=== PATIENT | male | born 1955 | race Caucasian/White ===

== ENCOUNTER 2018-02-16 15:33 | Inpatient (IN) | payer BC ==
[~2018-02-16 15:33] MED LIST: VANCOMYCIN HCL 1,000 MG, VIAL MATE ADAPTER 1 EACH in D5W 250 ML IV
[2018-02-16 17:10] LABS: HEMATOCRIT 40.9 % (42.0-52.0); MEAN CORPUSCULAR HEMOGLOBIN 27.2 pg (27.0-33.0); MEAN CORPUSCULAR HGB CONC 34.2 g/dl (32.0-36.5); MEAN CORPUSCULAR VOLUME 79.4 fl (80.0-96.0); PLATELET COUNT, AUTOMATED 272 10^3/uL (150-450); RED BLOOD COUNT 5.15 10^6/uL (4.30-6.10); RED CELL DISTRIBUTION WIDTH 12.2 % (11.5-14.5); WHITE BLOOD COUNT 17.6 10^3/uL (4.0-10.0)
[2018-02-16 17:16] LABS: KETONE, URINE AUTO RFX 2+ mg/dL (NEGATIVE); LEUKOCYTE ESTERASE UR AUTO RFX NEGATIVE (NEGATIVE); MUCUS, URINE RFX SMALL (NEGATIVE); NITRITE, URINE AUTO RFX NEGATIVE (NEGATIVE); RBC, URINE AUTO RFX 1 /HPF (0-3); SPECIFIC GRAVITY UR AUTO RFX 1.037 (1.002-1.035); SQUAM EPITHELIAL CELL UR AURFX 1 /HPF (0-6); WBC, URINE AUTO RFX 2 /HPF (0-3)
[2018-02-16 17:21] LABS: INR 1.09; PROTHROMBIN TIME 14.3 SECONDS (12.4-14.5)
[2018-02-16 17:29] LABS: LACTIC ACID SEPSIS PROTOCOL 1.6 MMOL/L (0.4-2.0)
[2018-02-16 17:30] LABS: ALBUMIN 3.1 GM/DL (3.2-5.2); ALBUMIN/GLOBULIN RATIO 0.54 (1.00-1.93); ALKALINE PHOSPHATASE 143 U/L (45-117); ALT/SGPT 21 U/L (12-78); ANION GAP 7 MEQ/L (8-16); AST/SGOT 24 U/L (7-37); BILIRUBIN,DIRECT 0.2 MG/DL (0.0-0.2); BILIRUBIN,TOTAL 0.8 MG/DL (0.2-1.0); BLOOD UREA NITROGEN 20 MG/DL (7-18); CALCIUM LEVEL 9.8 MG/DL (8.8-10.2); CARBON DIOXIDE LEVEL 30 MEQ/L (21-32); CHLORIDE LEVEL 94 MEQ/L (98-107); CREATININE FOR GFR 1.09 MG/DL (0.70-1.30); GLOMERULAR FILTRATION RATE > 60.0 (>49); GLUCOSE, FASTING 321 MG/DL (70-100); SODIUM LEVEL 131 MEQ/L (136-145); TOTAL PROTEIN 8.8 GM/DL (6.4-8.2)
[2018-02-16] MEDS: NS 1,000 ML IV (18:30)
[2018-02-16] MEDS: HumuLIN R (REGULAR) INSULIN (NovoLIN R) **100U/ML** PER UNIT IV (18:30)
[2018-02-16 19:58] LABS: BEDSIDE GLUCOSE 175 MG/DL (80-115)
[2018-02-16] MEDS: PIPERACILLIN/TAZOBACTAM SOD 4.5 GM in D5W MINI-BAG PLUS 50 ML IV (22:15)
[2018-02-16] MEDS ORDERED: GLUCAGON FOR INJ 1 MG VIAL (J1610) SC (23:15)
[2018-02-16] MEDS ORDERED: DEXTROSE 50% 50 ML SYRINGE IV (23:15)
[2018-02-16] MEDS ORDERED: GLUCOSE 4 GM CHEW TABLET PO (23:15)
[2018-02-16] MEDS ORDERED: ACETAMINOPHEN TAB 650MG DOSE (2X325MG) PO (23:15)
[2018-02-17 00:12] LABS: CHOLESTEROL LEVEL 121 MG/DL (<200); CHOLESTEROL RISK RATIO 3.558 (<5); HDL CHOLESTEROL 34 MG/DL (>40); LDL CHOLESTEROL 64.8 MG/DL (<100); NON-HDL-C 87 MG/DL; TRIGLYCERIDES LEVEL 111 MG/DL (<150)
[2018-02-17 00:14] LABS: ESTIMATED AVERAGE GLUCOSE 341 MG/DL (60-110); HEMOGLOBIN A1c 13.5 %
[2018-02-17 00:47] LABS: ERYTHROCYTE SEDIMENTATION RATE 59 mm/hr (0-20)
[2018-02-17] MEDS: VANCOMYCIN HCL 1,000 MG, VIAL MATE ADAPTER 1 EACH in D5W 250 ML IV ×3 (00:52→20:37)
[2018-02-17 00:55] LABS: BEDSIDE GLUCOSE 273 MG/DL (80-115)
[2018-02-17] MEDS: HumaLOG INSULIN (NovoLOG) PER UNIT SC ×5 (01:52→20:37)
[2018-02-17 06:29] LABS: HEMATOCRIT 32.9 % (42.0-52.0); MEAN CORPUSCULAR HEMOGLOBIN 28.1 pg (27.0-33.0); MEAN CORPUSCULAR VOLUME 80.4 fl (80.0-96.0); PLATELET COUNT, AUTOMATED 205 10^3/uL (150-450); RED BLOOD COUNT 4.09 10^6/uL (4.30-6.10); WHITE BLOOD COUNT 12.9 10^3/uL (4.0-10.0)
[2018-02-17 06:39] LABS: HEMOGLOBIN 11.5 g/dl (13.5-17.5)
[2018-02-17 06:44] LABS: ANION GAP 8 MEQ/L (8-16); BLOOD UREA NITROGEN 16 MG/DL (7-18); CALCIUM LEVEL 8.3 MG/DL (8.8-10.2); CARBON DIOXIDE LEVEL 28 MEQ/L (21-32); CHLORIDE LEVEL 99 MEQ/L (98-107); CREATININE FOR GFR 0.78 MG/DL (0.70-1.30); GLOMERULAR FILTRATION RATE > 60.0 (>49); GLUCOSE, FASTING 253 MG/DL (70-100); POTASSIUM SERUM 3.6 MEQ/L (3.5-5.1); SODIUM LEVEL 135 MEQ/L (136-145)
[2018-02-17 07:43] LABS: ERYTHROCYTE SEDIMENTATION RATE 85 mm/hr (0-20)
[2018-02-17] MEDS: ENOXAPARIN 40 MG/0.4 ML SYRINGE (J1650) SC (09:06)
[2018-02-17] MEDS: LISINOPRIL 10 MG TAB PO (09:06)
[2018-02-17] MEDS: INFLUENZA QUADRIVALENT PF VACCINE 0.5ML SYRINGE (90686) IM (09:07)
[2018-02-17] MEDS: PIPERACILLIN/TAZOBACTAM SOD 2.25 GM in D5W MINI-BAG PLUS 50 ML IV ×2 (10:59→22:52)
[2018-02-17 11:54] LABS: BEDSIDE GLUCOSE 349 MG/DL (80-115)
[2018-02-17 17:22] LABS: BEDSIDE GLUCOSE 294 MG/DL (80-115)
[2018-02-17] MEDS ORDERED: PROHANCE 279.3MG/ML 15ML VIAL (A9576) As Ordered (19:45)
[2018-02-17] MEDS: LEVEMIR (INSULIN DETEMIR) 1 UNITS/0.01ML SC (20:37)
[2018-02-17 20:53] LABS: BEDSIDE GLUCOSE 325 MG/DL (80-115)
[2018-02-18 07:09] LABS: HEMATOCRIT 33.1 % (42.0-52.0); HEMOGLOBIN 11.4 g/dl (13.5-17.5); MEAN CORPUSCULAR HEMOGLOBIN 27.2 pg (27.0-33.0); MEAN CORPUSCULAR HGB CONC 34.4 g/dl (32.0-36.5); PLATELET COUNT, AUTOMATED 251 10^3/uL (150-450); RED BLOOD COUNT 4.19 10^6/uL (4.30-6.10); RED CELL DISTRIBUTION WIDTH 11.9 % (11.5-14.5); WHITE BLOOD COUNT 9.5 10^3/uL (4.0-10.0)
[2018-02-18 07:29] LABS: ANION GAP 7 MEQ/L (8-16); BLOOD UREA NITROGEN 16 MG/DL (7-18); CALCIUM LEVEL 8.3 MG/DL (8.8-10.2); CARBON DIOXIDE LEVEL 30 MEQ/L (21-32); CHLORIDE LEVEL 100 MEQ/L (98-107); CREATININE FOR GFR 0.86 MG/DL (0.70-1.30); GLOMERULAR FILTRATION RATE > 60.0 (>49); GLUCOSE, FASTING 299 MG/DL (70-100); POTASSIUM SERUM 3.6 MEQ/L (3.5-5.1); SODIUM LEVEL 137 MEQ/L (136-145)
[2018-02-18] MEDS: HumaLOG INSULIN (NovoLOG) PER UNIT SC ×4 (07:54→21:01)
[2018-02-18] MEDS: LISINOPRIL 10 MG TAB PO (07:54)
[2018-02-18] MEDS: ENOXAPARIN 40 MG/0.4 ML SYRINGE (J1650) SC (07:55)
[2018-02-18 07:57] LABS: ERYTHROCYTE SEDIMENTATION RATE 94 mm/hr (0-20)
[2018-02-18 08:10] LABS: VANCOMYCIN LEVEL TROUGH 5.6 UG/ML (10.0-20.0)
[2018-02-18] MEDS: VANCOMYCIN HCL 1,000 MG, VIAL MATE ADAPTER 1 EACH in D5W 250 ML IV ×3 (08:54→21:02)
[2018-02-18] MEDS: PIPERACILLIN/TAZOBACTAM SOD 2.25 GM in D5W MINI-BAG PLUS 50 ML IV ×2 (11:33→22:43)
[2018-02-18 12:03] LABS: BEDSIDE GLUCOSE 344 MG/DL (80-115)
[2018-02-18 17:22] LABS: BEDSIDE GLUCOSE 276 MG/DL (80-115)
[2018-02-18 20:01] LABS: BEDSIDE GLUCOSE 326 MG/DL (80-115)
[2018-02-18] MEDS: LEVEMIR (INSULIN DETEMIR) 1 UNITS/0.01ML SC (21:02)
[2018-02-19 07:41] LABS: HEMATOCRIT 35.1 % (42.0-52.0); HEMOGLOBIN 11.9 g/dl (13.5-17.5); MEAN CORPUSCULAR HEMOGLOBIN 27.3 pg (27.0-33.0); MEAN CORPUSCULAR HGB CONC 33.9 g/dl (32.0-36.5); MEAN CORPUSCULAR VOLUME 80.5 fl (80.0-96.0); PLATELET COUNT, AUTOMATED 269 10^3/uL (150-450); RED BLOOD COUNT 4.36 10^6/uL (4.30-6.10); WHITE BLOOD COUNT 8.1 10^3/uL (4.0-10.0)
[2018-02-19 08:01] LABS: ANION GAP 7 MEQ/L (8-16); BLOOD UREA NITROGEN 13 MG/DL (7-18); C REACTIVE PROTEIN QUANTITATIV 9.29 MG/DL (0.00-0.30); CALCIUM LEVEL 8.3 MG/DL (8.8-10.2); CARBON DIOXIDE LEVEL 31 MEQ/L (21-32); CHLORIDE LEVEL 100 MEQ/L (98-107); CREATININE FOR GFR 0.78 MG/DL (0.70-1.30); GLOMERULAR FILTRATION RATE > 60.0 (>49); GLUCOSE, FASTING 228 MG/DL (70-100); POTASSIUM SERUM 3.3 MEQ/L (3.5-5.1); SODIUM LEVEL 138 MEQ/L (136-145)
[2018-02-19 08:22] LABS: ERYTHROCYTE SEDIMENTATION RATE 89 mm/hr (0-20)
[2018-02-19] MEDS: VANCOMYCIN HCL 1,000 MG, VIAL MATE ADAPTER 1 EACH in D5W 250 ML IV ×2 (08:30→20:55)
[2018-02-19] MEDS: HumaLOG INSULIN (NovoLOG) PER UNIT SC ×4 (08:31→20:45)
[2018-02-19] MEDS: LISINOPRIL 10 MG TAB PO (08:33)
[2018-02-19] MEDS: ENOXAPARIN 40 MG/0.4 ML SYRINGE (J1650) SC (08:33)
[2018-02-19] MEDS: PIPERACILLIN/TAZOBACTAM SOD 2.25 GM in D5W MINI-BAG PLUS 50 ML IV ×2 (10:21→22:39)
[2018-02-19 11:44] LABS: BEDSIDE GLUCOSE 269 MG/DL (80-115)
[2018-02-19] MEDS: BUPIVACAINE HCL 0.5% 10 ML VIAL As Ordered (15:43)
[2018-02-19] MEDS ORDERED: PROPOFOL 200 MG/20 ML VIAL As Ordered (16:18)
[2018-02-19] MEDS ORDERED: fentaNYL 100 MCG/2 ML INJECTION (J3010) As Ordered (16:19)
[2018-02-19] MEDS ORDERED: MIDAZOLAM INJ 2 MG/2 ML VIAL (J2250) As Ordered (16:20)
[2018-02-19] MEDS: LIDOCAINE 2% MDV 20 ML VIAL As Ordered (16:43)
[2018-02-19] MEDS: VANCOMYCIN 1000 MG/20 ML VIAL (J3370) As Ordered (17:06)
[2018-02-19 18:15] LABS: BEDSIDE GLUCOSE 191 MG/DL (80-115)
[2018-02-19] MEDS: LR 1,000 ML IV (18:15)
[2018-02-19] MEDS ORDERED: NORCO, ANEXSIA 5/325MG TABLET (HYDROcodone/ACETAMINOPHEN) PO (18:15)
[2018-02-19] MEDS ORDERED: ONDANSETRON 4MG/2ML VIAL (J2405) IV (18:15)
[2018-02-19 20:18] LABS: BEDSIDE GLUCOSE 246 MG/DL (80-115)
[2018-02-19] MEDS: LEVEMIR (INSULIN DETEMIR) 1 UNITS/0.01ML SC (20:55)
[2018-02-20 06:37] LABS: HEMATOCRIT 34.4 % (42.0-52.0); HEMOGLOBIN 11.6 g/dl (13.5-17.5); MEAN CORPUSCULAR HEMOGLOBIN 27.4 pg (27.0-33.0); MEAN CORPUSCULAR HGB CONC 33.7 g/dl (32.0-36.5); MEAN CORPUSCULAR VOLUME 81.1 fl (80.0-96.0); PLATELET COUNT, AUTOMATED 300 10^3/uL (150-450); RED BLOOD COUNT 4.24 10^6/uL (4.30-6.10); WHITE BLOOD COUNT 8.8 10^3/uL (4.0-10.0)
[2018-02-20 06:53] LABS: ANION GAP 5 MEQ/L (8-16); BLOOD UREA NITROGEN 13 MG/DL (7-18); CALCIUM LEVEL 8.6 MG/DL (8.8-10.2); CARBON DIOXIDE LEVEL 34 MEQ/L (21-32); CHLORIDE LEVEL 98 MEQ/L (98-107); CREATININE FOR GFR 0.89 MG/DL (0.70-1.30); GLOMERULAR FILTRATION RATE > 60.0 (>49); GLUCOSE, FASTING 233 MG/DL (70-100); POTASSIUM SERUM 4.1 MEQ/L (3.5-5.1); SODIUM LEVEL 137 MEQ/L (136-145)
[2018-02-20 07:06] LABS: ERYTHROCYTE SEDIMENTATION RATE 85 mm/hr (0-20)
[2018-02-20] MEDS: VANCOMYCIN HCL 1,000 MG, VIAL MATE ADAPTER 1 EACH in D5W 250 ML IV (09:05)
[2018-02-20] MEDS: ENOXAPARIN 40 MG/0.4 ML SYRINGE (J1650) SC (09:06)
[2018-02-20] MEDS: HumaLOG INSULIN (NovoLOG) PER UNIT SC ×4 (09:06→21:12)
[2018-02-20] MEDS: LISINOPRIL 10 MG TAB PO (09:15)
[2018-02-20] MEDS: PIPERACILLIN/TAZOBACTAM SOD 2.25 GM in D5W MINI-BAG PLUS 50 ML IV (10:21)
[2018-02-20] MEDS ORDERED: CEFAZOLIN SOD 2 GM in APPROPRIATE DILUENT 1 EA IV (12:00)
[2018-02-20 13:00] LABS: BEDSIDE GLUCOSE 261 MG/DL (80-115)
[2018-02-20 13:22] LABS: HEPATITIS C VIRUS ABY INDEX < 0.0 INDEX (<0.8)
[2018-02-20 17:40] LABS: BEDSIDE GLUCOSE 357 MG/DL (80-115)
[2018-02-20] MEDS: LEVEMIR (INSULIN DETEMIR) 1 UNITS/0.01ML SC (21:08)
[2018-02-20 21:22] LABS: BEDSIDE GLUCOSE 390 MG/DL (80-115)
[2018-02-21 06:01] LABS: HEMATOCRIT 34.6 % (42.0-52.0); HEMOGLOBIN 11.7 g/dl (13.5-17.5); MEAN CORPUSCULAR HEMOGLOBIN 27.1 pg (27.0-33.0); MEAN CORPUSCULAR HGB CONC 33.8 g/dl (32.0-36.5); MEAN CORPUSCULAR VOLUME 80.3 fl (80.0-96.0); PLATELET COUNT, AUTOMATED 327 10^3/uL (150-450); RED BLOOD COUNT 4.31 10^6/uL (4.30-6.10); RED CELL DISTRIBUTION WIDTH 11.9 % (11.5-14.5); WHITE BLOOD COUNT 7.7 10^3/uL (4.0-10.0)
[2018-02-21 06:28] LABS: ANION GAP 5 MEQ/L (8-16); BLOOD UREA NITROGEN 14 MG/DL (7-18); C REACTIVE PROTEIN QUANTITATIV 6.01 MG/DL (0.00-0.30); CALCIUM LEVEL 8.6 MG/DL (8.8-10.2); CARBON DIOXIDE LEVEL 33 MEQ/L (21-32); CHLORIDE LEVEL 99 MEQ/L (98-107); CREATININE FOR GFR 0.91 MG/DL (0.70-1.30); GLOMERULAR FILTRATION RATE > 60.0 (>49); GLUCOSE, FASTING 186 MG/DL (70-100); SODIUM LEVEL 137 MEQ/L (136-145)
[2018-02-21 06:29] LABS: ERYTHROCYTE SEDIMENTATION RATE 75 mm/hr (0-20)
[2018-02-21] MEDS: LISINOPRIL 10 MG TAB PO (08:37)
[2018-02-21] MEDS: ENOXAPARIN 40 MG/0.4 ML SYRINGE (J1650) SC (08:37)
[2018-02-21] MEDS: HumaLOG INSULIN (NovoLOG) PER UNIT SC ×4 (08:38→21:04)
[2018-02-21 12:12] LABS: BEDSIDE GLUCOSE 284 MG/DL (80-115)
[2018-02-21 21:01] LABS: BEDSIDE GLUCOSE 271 MG/DL (80-115)
[2018-02-21] MEDS: LEVEMIR (INSULIN DETEMIR) 1 UNITS/0.01ML SC (21:03)
[2018-02-22 06:04] LABS: HEMATOCRIT 35.5 % (42.0-52.0); HEMOGLOBIN 11.8 g/dl (13.5-17.5); MEAN CORPUSCULAR HEMOGLOBIN 27.3 pg (27.0-33.0); MEAN CORPUSCULAR HGB CONC 33.2 g/dl (32.0-36.5); MEAN CORPUSCULAR VOLUME 82.2 fl (80.0-96.0); PLATELET COUNT, AUTOMATED 316 10^3/uL (150-450); RED BLOOD COUNT 4.32 10^6/uL (4.30-6.10); WHITE BLOOD COUNT 7.4 10^3/uL (4.0-10.0)
[2018-02-22 06:24] LABS: ERYTHROCYTE SEDIMENTATION RATE 82 mm/hr (0-20)
[2018-02-22 06:25] LABS: ANION GAP 6 MEQ/L (8-16); BLOOD UREA NITROGEN 16 MG/DL (7-18); C REACTIVE PROTEIN QUANTITATIV 3.11 MG/DL (0.00-0.30); CALCIUM LEVEL 8.6 MG/DL (8.8-10.2); CARBON DIOXIDE LEVEL 31 MEQ/L (21-32); CHLORIDE LEVEL 102 MEQ/L (98-107); CREATININE FOR GFR 0.98 MG/DL (0.70-1.30); GLOMERULAR FILTRATION RATE > 60.0 (>49); GLUCOSE, FASTING 169 MG/DL (70-100); MAGNESIUM LEVEL 2.4 MG/DL (1.8-2.4); SODIUM LEVEL 139 MEQ/L (136-145)
[2018-02-22] MEDS: ENOXAPARIN 40 MG/0.4 ML SYRINGE (J1650) SC (09:07)
[2018-02-22] MEDS: LISINOPRIL 10 MG TAB PO (09:07)
[2018-02-22] MEDS: HumaLOG INSULIN (NovoLOG) PER UNIT SC ×4 (09:08→20:22)
[2018-02-22 11:56] LABS: BEDSIDE GLUCOSE 229 MG/DL (80-115)
[2018-02-22 16:36] LABS: BEDSIDE GLUCOSE 193 MG/DL (80-115)
[2018-02-22 20:15] LABS: BEDSIDE GLUCOSE 269 MG/DL (80-115)
[2018-02-22] MEDS: LEVEMIR (INSULIN DETEMIR) 1 UNITS/0.01ML SC (20:21)
[2018-02-23 05:58] LABS: HEMOGLOBIN 11.8 g/dl (13.5-17.5); MEAN CORPUSCULAR HEMOGLOBIN 27.2 pg (27.0-33.0); MEAN CORPUSCULAR HGB CONC 32.8 g/dl (32.0-36.5); MEAN CORPUSCULAR VOLUME 82.9 fl (80.0-96.0); PLATELET COUNT, AUTOMATED 322 10^3/uL (150-450); RED BLOOD COUNT 4.34 10^6/uL (4.30-6.10); WHITE BLOOD COUNT 6.9 10^3/uL (4.0-10.0)
[2018-02-23 06:18] LABS: ANION GAP 6 MEQ/L (8-16); BLOOD UREA NITROGEN 15 MG/DL (7-18); C REACTIVE PROTEIN QUANTITATIV 2.12 MG/DL (0.00-0.30); CALCIUM LEVEL 8.6 MG/DL (8.8-10.2); CARBON DIOXIDE LEVEL 32 MEQ/L (21-32); CHLORIDE LEVEL 102 MEQ/L (98-107); GLOMERULAR FILTRATION RATE > 60.0 (>49); GLUCOSE, FASTING 83 MG/DL (70-100); MAGNESIUM LEVEL 2.3 MG/DL (1.8-2.4); POTASSIUM SERUM 3.9 MEQ/L (3.5-5.1); SODIUM LEVEL 140 MEQ/L (136-145)
[2018-02-23] MEDS: HumaLOG INSULIN (NovoLOG) PER UNIT SC ×4 (07:30→20:26)
[2018-02-23 08:03] LABS: ERYTHROCYTE SEDIMENTATION RATE 82 mm/hr (0-20)
[2018-02-23] MEDS: LISINOPRIL 10 MG TAB PO (08:33)
[2018-02-23] MEDS: ENOXAPARIN 40 MG/0.4 ML SYRINGE (J1650) SC (08:34)
[2018-02-23 12:03] LABS: BEDSIDE GLUCOSE 239 MG/DL (80-115)
[2018-02-23 17:08] LABS: BEDSIDE GLUCOSE 201 MG/DL (80-115)
[2018-02-23 20:27] LABS: BEDSIDE GLUCOSE 295 MG/DL (80-115)
[2018-02-23] MEDS: LEVEMIR (INSULIN DETEMIR) 1 UNITS/0.01ML SC (22:14)
[2018-02-24 06:25] LABS: BASO % 0.4 % (0.0-1.0); EOS # 0.2 10^3/uL (0.0-0.50); EOS % 2.3 % (0.0-3.0); HEMATOCRIT 36.5 % (42.0-52.0); HEMOGLOBIN 12.1 g/dl (13.5-17.5); IMMATURE GRANULOCYTE % 0.6 % (0-3.0); LYMPH # 1.7 10^3/uL (1.5-4.5); MEAN CORPUSCULAR HGB CONC 33.2 g/dl (32.0-36.5); MEAN CORPUSCULAR VOLUME 81.5 fl (80.0-96.0); MONO # 0.7 10^3/uL (0.0-0.8); MONO % 10.4 % (0.0-5.0); NEUTROPHILS # 4.4 10^3/uL (1.8-7.7); NEUTROPHILS % 62.3 % (36.0-66.0); PLATELET COUNT, AUTOMATED 369 10^3/uL (150-450); RED BLOOD COUNT 4.48 10^6/uL (4.30-6.10); RED CELL DISTRIBUTION WIDTH 12.1 % (11.5-14.5)
[2018-02-24 06:46] LABS: ANION GAP 3 MEQ/L (8-16); BLOOD UREA NITROGEN 14 MG/DL (7-18); C REACTIVE PROTEIN QUANTITATIV 1.67 MG/DL (0.00-0.30); CALCIUM LEVEL 8.9 MG/DL (8.8-10.2); CARBON DIOXIDE LEVEL 32 MEQ/L (21-32); CHLORIDE LEVEL 102 MEQ/L (98-107); CREATININE FOR GFR 0.93 MG/DL (0.70-1.30); GLOMERULAR FILTRATION RATE > 60.0 (>49); GLUCOSE, FASTING 98 MG/DL (70-100); MAGNESIUM LEVEL 2.7 MG/DL (1.8-2.4); POTASSIUM SERUM 4.3 MEQ/L (3.5-5.1); SODIUM LEVEL 137 MEQ/L (136-145)
[2018-02-24] MEDS: HumaLOG INSULIN (NovoLOG) PER UNIT SC ×5 (07:03→21:00)
[2018-02-24] MEDS: ENOXAPARIN 40 MG/0.4 ML SYRINGE (J1650) SC (07:37)
[2018-02-24] MEDS: LISINOPRIL 10 MG TAB PO (07:37)
[2018-02-24 11:43] LABS: BEDSIDE GLUCOSE 114 MG/DL (80-115)
[2018-02-24 17:15] LABS: BEDSIDE GLUCOSE 215 MG/DL (80-115)
[2018-02-24] MEDS: LEVEMIR (INSULIN DETEMIR) 1 UNITS/0.01ML SC (21:00)
[2018-02-24 21:13] LABS: BEDSIDE GLUCOSE 278 MG/DL (80-115)
[2018-02-25 07:30] LABS: BASO % 0.5 % (0.0-1.0); EOS # 0.1 10^3/uL (0.0-0.50); EOS % 2.1 % (0.0-3.0); HEMATOCRIT 36.4 % (42.0-52.0); IMMATURE GRANULOCYTE % 0.6 % (0-3.0); LYMPH # 1.5 10^3/uL (1.5-4.5); LYMPH % 24.1 % (24.0-44.0); MEAN CORPUSCULAR HEMOGLOBIN 27.2 pg (27.0-33.0); MEAN CORPUSCULAR VOLUME 82.5 fl (80.0-96.0); MONO # 0.6 10^3/uL (0.0-0.8); MONO % 9.4 % (0.0-5.0); NEUTROPHILS % 63.3 % (36.0-66.0); PLATELET COUNT, AUTOMATED 381 10^3/uL (150-450); RED BLOOD COUNT 4.41 10^6/uL (4.30-6.10); RED CELL DISTRIBUTION WIDTH 12.1 % (11.5-14.5); WHITE BLOOD COUNT 6.3 10^3/uL (4.0-10.0)
[2018-02-25] MEDS: HumaLOG INSULIN (NovoLOG) PER UNIT SC ×4 (07:30→21:00)
[2018-02-25 07:48] LABS: ANION GAP 4 MEQ/L (8-16); BLOOD UREA NITROGEN 17 MG/DL (7-18); CALCIUM LEVEL 8.7 MG/DL (8.8-10.2); CARBON DIOXIDE LEVEL 33 MEQ/L (21-32); CHLORIDE LEVEL 103 MEQ/L (98-107); CREATININE FOR GFR 0.92 MG/DL (0.70-1.30); GLOMERULAR FILTRATION RATE > 60.0 (>49); GLUCOSE, FASTING 73 MG/DL (70-100); MAGNESIUM LEVEL 2.3 MG/DL (1.8-2.4); POTASSIUM SERUM 4.3 MEQ/L (3.5-5.1); SODIUM LEVEL 140 MEQ/L (136-145)
[2018-02-25] MEDS: ENOXAPARIN 40 MG/0.4 ML SYRINGE (J1650) SC (09:09)
[2018-02-25] MEDS: LISINOPRIL 10 MG TAB PO (09:09)
[2018-02-25 09:36] LABS: BEDSIDE GLUCOSE 305 MG/DL (80-115)
[2018-02-25] MEDS: D5W/0.45% SODIUM CHLORIDE 1,000 ML IV (09:59)
[2018-02-25 11:59] LABS: BEDSIDE GLUCOSE 119 MG/DL (80-115)
[2018-02-25 17:22] LABS: BEDSIDE GLUCOSE 168 MG/DL (80-115)
[2018-02-25] MEDS: LEVEMIR (INSULIN DETEMIR) 1 UNITS/0.01ML SC (21:07)
[2018-02-26 06:24] LABS: BASO % 0.7 % (0.0-1.0); EOS # 0.1 10^3/uL (0.0-0.50); EOS % 1.6 % (0.0-3.0); HEMATOCRIT 37.7 % (42.0-52.0); HEMOGLOBIN 12.4 g/dl (13.5-17.5); IMMATURE GRANULOCYTE % 0.4 % (0-3.0); LYMPH # 1.6 10^3/uL (1.5-4.5); LYMPH % 27.9 % (24.0-44.0); MEAN CORPUSCULAR HGB CONC 32.9 g/dl (32.0-36.5); MONO # 0.6 10^3/uL (0.0-0.8); MONO % 11.2 % (0.0-5.0); NEUTROPHILS # 3.3 10^3/uL (1.8-7.7); NEUTROPHILS % 58.2 % (36.0-66.0); PLATELET COUNT, AUTOMATED 365 10^3/uL (150-450); WHITE BLOOD COUNT 5.7 10^3/uL (4.0-10.0)
[2018-02-26 06:56] LABS: ANION GAP 2 MEQ/L (8-16); BLOOD UREA NITROGEN 19 MG/DL (7-18); C REACTIVE PROTEIN QUANTITATIV 1.02 MG/DL (0.00-0.30); CALCIUM LEVEL 8.9 MG/DL (8.8-10.2); CARBON DIOXIDE LEVEL 33 MEQ/L (21-32); CHLORIDE LEVEL 103 MEQ/L (98-107); CREATININE FOR GFR 1.07 MG/DL (0.70-1.30); GLOMERULAR FILTRATION RATE > 60.0 (>49); GLUCOSE, FASTING 155 MG/DL (70-100); MAGNESIUM LEVEL 2.5 MG/DL (1.8-2.4); POTASSIUM SERUM 4.6 MEQ/L (3.5-5.1); SODIUM LEVEL 138 MEQ/L (136-145)
[2018-02-26] MEDS: HumaLOG INSULIN (NovoLOG) PER UNIT SC ×4 (07:30→21:00)
[2018-02-26] MEDS: LISINOPRIL 10 MG TAB PO (09:34)
[2018-02-26] MEDS: ENOXAPARIN 40 MG/0.4 ML SYRINGE (J1650) SC (09:35)
[2018-02-26 11:13] LABS: BEDSIDE GLUCOSE 223 MG/DL (80-115)
[2018-02-26 11:54] LABS: BEDSIDE GLUCOSE 115 MG/DL (80-115)
[2018-02-26] MEDS ORDERED: MIDAZOLAM INJ 2 MG/2 ML VIAL (J2250) As Ordered (14:53)
[2018-02-26] MEDS ORDERED: fentaNYL 100 MCG/2 ML INJECTION (J3010) As Ordered (14:53)
[2018-02-26] MEDS ORDERED: HEPARIN 1,000 UNITS/ML 10ML VIAL (FOR RADIOLOGY& DIALYSIS ONLY) As Ordered (14:54)
[2018-02-26] MEDS ORDERED: ISOVUE-300 61% 50ML VIAL (Q9967) As Ordered (14:54)
[2018-02-26 17:20] LABS: BEDSIDE GLUCOSE 87 MG/DL (80-115)
[2018-02-26 20:53] LABS: BEDSIDE GLUCOSE 224 MG/DL (80-115)
[2018-02-26] MEDS: LEVEMIR (INSULIN DETEMIR) 1 UNITS/0.01ML SC (21:04)
[2018-02-27 06:39] LABS: BASO % 0.5 % (0.0-1.0); EOS # 0.1 10^3/uL (0.0-0.50); EOS % 1.3 % (0.0-3.0); HEMATOCRIT 36.2 % (42.0-52.0); HEMOGLOBIN 12.1 g/dl (13.5-17.5); IMMATURE GRANULOCYTE % 0.2 % (0-3.0); LYMPH # 1.6 10^3/uL (1.5-4.5); MEAN CORPUSCULAR HEMOGLOBIN 27.6 pg (27.0-33.0); MEAN CORPUSCULAR HGB CONC 33.4 g/dl (32.0-36.5); MEAN CORPUSCULAR VOLUME 82.6 fl (80.0-96.0); MONO # 0.7 10^3/uL (0.0-0.8); MONO % 10.4 % (0.0-5.0); NEUTROPHILS # 3.9 10^3/uL (1.8-7.7); NEUTROPHILS % 62.6 % (36.0-66.0); PLATELET COUNT, AUTOMATED 380 10^3/uL (150-450); RED BLOOD COUNT 4.38 10^6/uL (4.30-6.10); WHITE BLOOD COUNT 6.2 10^3/uL (4.0-10.0)
[2018-02-27 06:58] LABS: ANION GAP 5 MEQ/L (8-16); BLOOD UREA NITROGEN 15 MG/DL (7-18); C REACTIVE PROTEIN QUANTITATIV 0.69 MG/DL (0.00-0.30); CALCIUM LEVEL 8.7 MG/DL (8.8-10.2); CARBON DIOXIDE LEVEL 31 MEQ/L (21-32); CHLORIDE LEVEL 104 MEQ/L (98-107); GLOMERULAR FILTRATION RATE > 60.0 (>49); GLUCOSE, FASTING 61 MG/DL (70-100); MAGNESIUM LEVEL 2.5 MG/DL (1.8-2.4); POTASSIUM SERUM 4.1 MEQ/L (3.5-5.1); SODIUM LEVEL 140 MEQ/L (136-145)
[2018-02-27] MEDS: HumaLOG INSULIN (NovoLOG) PER UNIT SC ×4 (07:23→21:00)
[2018-02-27] MEDS: LISINOPRIL 10 MG TAB PO (08:02)
[2018-02-27] MEDS: ENOXAPARIN 40 MG/0.4 ML SYRINGE (J1650) SC (08:03)
[2018-02-27 11:45] LABS: BEDSIDE GLUCOSE 250 MG/DL (80-115)
[2018-02-27 16:45] LABS: BEDSIDE GLUCOSE 215 MG/DL (80-115)
[2018-02-27 21:11] LABS: BEDSIDE GLUCOSE 219 MG/DL (80-115)
[2018-02-27] MEDS: LEVEMIR (INSULIN DETEMIR) 1 UNITS/0.01ML SC (21:36)
[2018-02-28 06:01] LABS: BASO % 0.5 % (0.0-1.0); EOS # 0.1 10^3/uL (0.0-0.50); EOS % 1.8 % (0.0-3.0); HEMATOCRIT 35.8 % (42.0-52.0); HEMOGLOBIN 11.9 g/dl (13.5-17.5); IMMATURE GRANULOCYTE % 0.5 % (0-3.0); LYMPH # 1.3 10^3/uL (1.5-4.5); LYMPH % 20.9 % (24.0-44.0); MEAN CORPUSCULAR HEMOGLOBIN 27.5 pg (27.0-33.0); MEAN CORPUSCULAR HGB CONC 33.2 g/dl (32.0-36.5); MEAN CORPUSCULAR VOLUME 82.9 fl (80.0-96.0); MONO # 0.7 10^3/uL (0.0-0.8); MONO % 10.8 % (0.0-5.0); NEUTROPHILS # 4.1 10^3/uL (1.8-7.7); NEUTROPHILS % 65.5 % (36.0-66.0); PLATELET COUNT, AUTOMATED 336 10^3/uL (150-450); RED BLOOD COUNT 4.32 10^6/uL (4.30-6.10); WHITE BLOOD COUNT 6.3 10^3/uL (4.0-10.0)
[2018-02-28 06:29] LABS: ANION GAP 5 MEQ/L (8-16); BLOOD UREA NITROGEN 16 MG/DL (7-18); C REACTIVE PROTEIN QUANTITATIV 0.74 MG/DL (0.00-0.30); CALCIUM LEVEL 8.8 MG/DL (8.8-10.2); CARBON DIOXIDE LEVEL 31 MEQ/L (21-32); CHLORIDE LEVEL 103 MEQ/L (98-107); CREATININE FOR GFR 0.84 MG/DL (0.70-1.30); GLOMERULAR FILTRATION RATE > 60.0 (>49); GLUCOSE, FASTING 141 MG/DL (70-100); MAGNESIUM LEVEL 2.5 MG/DL (1.8-2.4); POTASSIUM SERUM 4.7 MEQ/L (3.5-5.1); SODIUM LEVEL 139 MEQ/L (136-145)
[2018-02-28] MEDS: ENOXAPARIN 40 MG/0.4 ML SYRINGE (J1650) SC (07:36)
[2018-02-28] MEDS: LISINOPRIL 10 MG TAB PO (07:36)
[2018-02-28] MEDS: LEVEMIR (INSULIN DETEMIR) 1 UNITS/0.01ML SC ×2 (07:36→21:35)
[2018-02-28] MEDS: HumaLOG INSULIN (NovoLOG) PER UNIT SC ×4 (07:37→21:34)
[2018-02-28 11:58] LABS: BEDSIDE GLUCOSE 171 MG/DL (80-115)
[2018-02-28 16:42] LABS: BEDSIDE GLUCOSE 89 MG/DL (80-115)
[2018-03-01 05:54] LABS: BASO % 0.7 % (0.0-1.0); EOS # 0.1 10^3/uL (0.0-0.50); EOS % 2.1 % (0.0-3.0); HEMATOCRIT 36.1 % (42.0-52.0); HEMOGLOBIN 11.9 g/dl (13.5-17.5); IMMATURE GRANULOCYTE % 0.3 % (0-3.0); LYMPH # 1.3 10^3/uL (1.5-4.5); MEAN CORPUSCULAR HEMOGLOBIN 27.4 pg (27.0-33.0); MEAN CORPUSCULAR VOLUME 83.2 fl (80.0-96.0); MONO # 0.6 10^3/uL (0.0-0.8); NEUTROPHILS # 3.9 10^3/uL (1.8-7.7); NEUTROPHILS % 64.9 % (36.0-66.0); PLATELET COUNT, AUTOMATED 330 10^3/uL (150-450); RED BLOOD COUNT 4.34 10^6/uL (4.30-6.10); RED CELL DISTRIBUTION WIDTH 12.2 % (11.5-14.5); WHITE BLOOD COUNT 6.1 10^3/uL (4.0-10.0)
[2018-03-01 06:17] LABS: ANION GAP 3 MEQ/L (8-16); BLOOD UREA NITROGEN 16 MG/DL (7-18); C REACTIVE PROTEIN QUANTITATIV 0.91 MG/DL (0.00-0.30); CALCIUM LEVEL 8.4 MG/DL (8.8-10.2); CARBON DIOXIDE LEVEL 32 MEQ/L (21-32); CHLORIDE LEVEL 104 MEQ/L (98-107); CREATININE FOR GFR 0.87 MG/DL (0.70-1.30); GLOMERULAR FILTRATION RATE > 60.0 (>49); GLUCOSE, FASTING 91 MG/DL (70-100); POTASSIUM SERUM 4.4 MEQ/L (3.5-5.1); SODIUM LEVEL 139 MEQ/L (136-145)
[2018-03-01] MEDS: HumaLOG INSULIN (NovoLOG) PER UNIT SC ×4 (06:53→21:00)
[2018-03-01] MEDS: LISINOPRIL 10 MG TAB PO (08:02)
[2018-03-01] MEDS: ENOXAPARIN 40 MG/0.4 ML SYRINGE (J1650) SC (08:13)
[2018-03-01] MEDS: LEVEMIR (INSULIN DETEMIR) 1 UNITS/0.01ML SC ×2 (08:14→21:14)
[2018-03-01] MEDS: LISINOPRIL 5 MG TAB PO (08:59)
[2018-03-01 09:35] LABS: BEDSIDE GLUCOSE 303 MG/DL (80-115)
[2018-03-01 21:21] LABS: BEDSIDE GLUCOSE 171 MG/DL (80-115)
[2018-03-02 05:55] LABS: BASO % 0.6 % (0.0-1.0); EOS # 0.1 10^3/uL (0.0-0.50); EOS % 2.3 % (0.0-3.0); HEMATOCRIT 36.1 % (42.0-52.0); HEMOGLOBIN 12.3 g/dl (13.5-17.5); IMMATURE GRANULOCYTE % 0.2 % (0-3.0); LYMPH # 1.6 10^3/uL (1.5-4.5); LYMPH % 29.5 % (24.0-44.0); MEAN CORPUSCULAR HEMOGLOBIN 28.1 pg (27.0-33.0); MEAN CORPUSCULAR HGB CONC 34.1 g/dl (32.0-36.5); MEAN CORPUSCULAR VOLUME 82.4 fl (80.0-96.0); MONO # 0.6 10^3/uL (0.0-0.8); MONO % 10.7 % (0.0-5.0); NEUTROPHILS % 56.7 % (36.0-66.0); PLATELET COUNT, AUTOMATED 338 10^3/uL (150-450); RED BLOOD COUNT 4.38 10^6/uL (4.30-6.10); RED CELL DISTRIBUTION WIDTH 12.3 % (11.5-14.5); WHITE BLOOD COUNT 5.3 10^3/uL (4.0-10.0)
[2018-03-02 06:17] LABS: ANION GAP 2 MEQ/L (8-16); BLOOD UREA NITROGEN 15 MG/DL (7-18); C REACTIVE PROTEIN QUANTITATIV 0.88 MG/DL (0.00-0.30); CALCIUM LEVEL 8.8 MG/DL (8.8-10.2); CARBON DIOXIDE LEVEL 33 MEQ/L (21-32); CHLORIDE LEVEL 105 MEQ/L (98-107); CREATININE FOR GFR 0.97 MG/DL (0.70-1.30); GLOMERULAR FILTRATION RATE > 60.0 (>49); GLUCOSE, FASTING 58 MG/DL (70-100); POTASSIUM SERUM 4.2 MEQ/L (3.5-5.1); SODIUM LEVEL 140 MEQ/L (136-145)
[2018-03-02] MEDS: HumaLOG INSULIN (NovoLOG) PER UNIT SC ×2 (07:30→12:56)
[2018-03-02 08:04] LABS: BEDSIDE GLUCOSE 193 MG/DL (80-115)
[2018-03-02 08:04] LABS: BEDSIDE GLUCOSE 156 MG/DL (80-115)
[2018-03-02] MEDS: ENOXAPARIN 40 MG/0.4 ML SYRINGE (J1650) SC (09:47)
[2018-03-02] MEDS: LISINOPRIL 5 MG TAB PO (09:48)
[2018-03-02] MEDS: LEVEMIR (INSULIN DETEMIR) 1 UNITS/0.01ML SC (10:46)
[2018-03-02 12:48] LABS: BEDSIDE GLUCOSE 258 MG/DL (80-115)
== END 2018-03-02 15:50 | disposition home health service (06) | DRG 405 ==
LOC: M MSPAV 02-17 00:20 → M ED 15:33 → M ED INP 23:47
PROVIDERS: Hospitalist
PROC: 0LBP0ZZ Excision of Left Lower Leg Tendon, Open Approach (ICD-10-PCS; principal; 2018-02-19 07:53)
PROC: 0KBW0ZZ Excision of Left Foot Muscle, Open Approach (ICD-10-PCS; 2018-02-19 07:53)
PROC: 0YBN0ZZ Excision of Left Foot, Open Approach (ICD-10-PCS; 2018-02-19 16:42)
PROC: 04CN3ZZ Extirpation of Matter from Left Popliteal Artery, Percutaneous Approach (ICD-10-PCS; 2018-02-19 16:42)
PROC: 04CQ3ZZ Extirpation of Matter from Left Anterior Tibial Artery, Percutaneous Approach (ICD-10-PCS; 2018-02-19 16:42)
PROC: B41DYZZ Fluoroscopy of Aorta and Bilateral Lower Extremity Arteries using Other Contrast (ICD-10-PCS; 2018-02-19 16:42)
DX: E11.622 Type 2 diabetes mellitus with other skin ulcer (principal); I96 Gangrene, not elsewhere classified; I70.262 Atherosclerosis of native arteries of extremities with gangrene, left leg; L03.116 Cellulitis of left lower limb; I10 Essential (primary) hypertension; Z79.82 Long term (current) use of aspirin; Z79.4 Long term (current) use of insulin; Z83.3 Family history of diabetes mellitus; Z80.0 Family history of malignant neoplasm of digestive organs; D72.829 Elevated white blood cell count, unspecified; Z79.899 Other long term (current) drug therapy; I87.2 Venous insufficiency (chronic) (peripheral); B95.61 Methicillin susceptible Staphylococcus aureus infection as the cause of diseases classified elsewhere; E11.621 Type 2 diabetes mellitus with foot ulcer

== ENCOUNTER → 2018-03-27 | Outpatient (CLI) | payer BC | LOC: M RAD 09:52 | DX: I70.235 Atherosclerosis of native arteries of right leg with ulceration of other part of foot (principal); I70.212 Atherosclerosis of native arteries of extremities with intermittent claudication, left leg | CPT/HCPCS: 93925 ==

== ENCOUNTER → 2018-05-28 | Outpatient (CLI) | payer BC ==
[2018-05-28 12:43] LABS: BASO % 0.7 % (0.0-1.0); EOS # 0.4 10^3/uL (0.0-0.50); HEMATOCRIT 40.2 % (42.0-52.0); HEMOGLOBIN 13.3 g/dl (13.5-17.5); IMMATURE GRANULOCYTE % 0.4 % (0-3.0); LYMPH # 1.3 10^3/uL (1.5-4.5); LYMPH % 24.1 % (24.0-44.0); MEAN CORPUSCULAR HEMOGLOBIN 27.3 pg (27.0-33.0); MEAN CORPUSCULAR HGB CONC 33.1 g/dl (32.0-36.5); MEAN CORPUSCULAR VOLUME 82.4 fl (80.0-96.0); MONO # 0.5 10^3/uL (0.0-0.8); NEUTROPHILS # 3.2 10^3/uL (1.8-7.7); NEUTROPHILS % 57.8 % (36.0-66.0); PLATELET COUNT, AUTOMATED 208 10^3/uL (150-450); RED BLOOD COUNT 4.88 10^6/uL (4.30-6.10); RED CELL DISTRIBUTION WIDTH 13.3 % (11.5-14.5); WHITE BLOOD COUNT 5.5 10^3/uL (4.0-10.0)
[2018-05-28 13:10] LABS: ALBUMIN 3.5 GM/DL (3.2-5.2); ALBUMIN/GLOBULIN RATIO 0.95 (1.00-1.93); ALKALINE PHOSPHATASE 83 U/L (45-117); ALT/SGPT 21 U/L (12-78); ANION GAP 6 MEQ/L (8-16); AST/SGOT 16 U/L (7-37); BILIRUBIN,TOTAL 0.3 MG/DL (0.2-1.0); BLOOD UREA NITROGEN 21 MG/DL (7-18); CALCIUM LEVEL 8.5 MG/DL (8.8-10.2); CARBON DIOXIDE LEVEL 30 MEQ/L (21-32); CHLORIDE LEVEL 105 MEQ/L (98-107); CHOLESTEROL LEVEL 139 MG/DL (<200); CHOLESTEROL RISK RATIO 3.971 (<5); CREATININE FOR GFR 1.01 MG/DL (0.70-1.30); GLOMERULAR FILTRATION RATE > 60.0 (>49); GLUCOSE, FASTING 124 MG/DL (70-100); HDL CHOLESTEROL 35 MG/DL (>40); NON-HDL-C 104 MG/DL; POTASSIUM SERUM 4.9 MEQ/L (3.5-5.1); SODIUM LEVEL 141 MEQ/L (136-145); TOTAL PROTEIN 7.2 GM/DL (6.4-8.2); TRIGLYCERIDES LEVEL 95 MG/DL (<150)
[2018-05-28 13:33] LABS: MALB URINE SIEMENS 21.3 MG/L; MAU/CREAT RATIO 14.2 MCG/MG (0.0-30.0)
[2018-05-28 13:53] LABS: ESTIMATED AVERAGE GLUCOSE 160 MG/DL (60-110); HEMOGLOBIN A1c 7.2 %
== END ==
LOC: M WUC 09:38
DX: E11.69 Type 2 diabetes mellitus with other specified complication (principal)
CPT/HCPCS: 80053

== ENCOUNTER → 2018-06-10 | Outpatient (REF) | payer BC | LOC: M LAB REF 19:52 | DX: L97.522 Non-pressure chronic ulcer of other part of left foot with fat layer exposed (principal) ==

== ENCOUNTER → 2018-08-20 | Outpatient (REF) | payer BC | LOC: M LAB REF 15:45 | DX: M86.9 Osteomyelitis, unspecified (principal) ==

== ENCOUNTER → 2018-08-20 | Outpatient (CLI) | payer BC | LOC: M RAD 13:06 | DX: I73.9 Peripheral vascular disease, unspecified (principal) | CPT/HCPCS: 93926 ==

== ENCOUNTER 2018-10-10 14:19 | Inpatient (IN) | payer BC ==
[2018-10-10] MEDS: CLINDAMYCIN 600 MG in APPROPRIATE DILUENT 1 EA IV (15:12)
[2018-10-10 15:38] LABS: HEMOGLOBIN 13.2 g/dl (13.5-17.5); MEAN CORPUSCULAR HEMOGLOBIN 27.8 pg (27.0-33.0); MEAN CORPUSCULAR VOLUME 84.2 fl (80.0-96.0); PLATELET COUNT, AUTOMATED 204 10^3/uL (150-450); RED BLOOD COUNT 4.75 10^6/uL (4.30-6.10); RED CELL DISTRIBUTION WIDTH 12.7 % (11.5-14.5); WHITE BLOOD COUNT 10.8 10^3/uL (4.0-10.0)
[2018-10-10 15:51] LABS: ALBUMIN 3.4 GM/DL (3.2-5.2); ALBUMIN/GLOBULIN RATIO 0.77 (1.00-1.93); ALKALINE PHOSPHATASE 81 U/L (45-117); ALT/SGPT 19 U/L (12-78); ANION GAP 6 MEQ/L (8-16); AST/SGOT 19 U/L (7-37); BILIRUBIN,DIRECT 0.1 MG/DL (0.0-0.2); BILIRUBIN,TOTAL 0.5 MG/DL (0.2-1.0); BLOOD UREA NITROGEN 23 MG/DL (7-18); CALCIUM LEVEL 8.6 MG/DL (8.8-10.2); CARBON DIOXIDE LEVEL 29 MEQ/L (21-32); CHLORIDE LEVEL 104 MEQ/L (98-107); GLOMERULAR FILTRATION RATE > 60.0 (>49); GLUCOSE, FASTING 163 MG/DL (70-100); POTASSIUM SERUM 4.2 MEQ/L (3.5-5.1); SODIUM LEVEL 139 MEQ/L (136-145); TOTAL PROTEIN 7.8 GM/DL (6.4-8.2)
[2018-10-10] MEDS ORDERED: ACETAMINOPHEN TAB 650MG DOSE (2X325MG) PO (18:45)
[2018-10-10] MEDS ORDERED: GLUCOSE 4 GM CHEW TABLET PO (18:45)
[2018-10-10] MEDS ORDERED: DEXTROSE 50% 50 ML SYRINGE IV (18:45)
[2018-10-10] MEDS ORDERED: GLUCAGON FOR INJ 1 MG VIAL (J1610) SC (18:45)
[2018-10-10] MEDS ORDERED: DOCUSATE SODIUM 100 MG CAP PO (18:45)
[2018-10-10 19:01] LABS: C REACTIVE PROTEIN QUANTITATIV 7.78 MG/DL (0.00-0.30)
[2018-10-10 19:08] LABS: ERYTHROCYTE SEDIMENTATION RATE 67 mm/hr (0-20)
[2018-10-10] MEDS: HEPARIN SOD (PORCINE) 5000 UNITS/ML VIAL SC (22:08)
[2018-10-10] MEDS: LEVEMIR (INSULIN DETEMIR) 1 UNITS/0.01ML SC (22:08)
[2018-10-10] MEDS: VANCOMYCIN HCL 1,000 MG, VIAL MATE ADAPTER 1 EACH in D5W 250 ML IV (22:08)
[2018-10-11] MEDS: GABAPENTIN 400 MG CAP PO ×3 (00:09→17:13)
[2018-10-11] MEDS: VANCOMYCIN HCL 1,000 MG, VIAL MATE ADAPTER 1 EACH in D5W 250 ML IV ×3 (03:44→20:16)
[2018-10-11 05:35] LABS: HEMATOCRIT 36.6 % (42.0-52.0); HEMOGLOBIN 12.3 g/dl (13.5-17.5); MEAN CORPUSCULAR HEMOGLOBIN 28.1 pg (27.0-33.0); MEAN CORPUSCULAR HGB CONC 33.6 g/dl (32.0-36.5); MEAN CORPUSCULAR VOLUME 83.8 fl (80.0-96.0); PLATELET COUNT, AUTOMATED 189 10^3/uL (150-450); RED BLOOD COUNT 4.37 10^6/uL (4.30-6.10); RED CELL DISTRIBUTION WIDTH 12.7 % (11.5-14.5); WHITE BLOOD COUNT 6.7 10^3/uL (4.0-10.0)
[2018-10-11 05:52] LABS: ANION GAP 7 MEQ/L (8-16); BLOOD UREA NITROGEN 17 MG/DL (7-18); CALCIUM LEVEL 8.3 MG/DL (8.8-10.2); CARBON DIOXIDE LEVEL 31 MEQ/L (21-32); CHLORIDE LEVEL 104 MEQ/L (98-107); CREATININE FOR GFR 0.97 MG/DL (0.70-1.30); GLOMERULAR FILTRATION RATE > 60.0 (>49); GLUCOSE, FASTING 110 MG/DL (70-100); POTASSIUM SERUM 3.9 MEQ/L (3.5-5.1); SODIUM LEVEL 142 MEQ/L (136-145)
[2018-10-11 06:08] LABS: BEDSIDE GLUCOSE 117 MG/DL (80-115)
[2018-10-11] MEDS: HEPARIN SOD (PORCINE) 5000 UNITS/ML VIAL SC ×3 (06:34→21:26)
[2018-10-11] MEDS: HumaLOG INSULIN (NovoLOG) PER UNIT SC ×3 (08:40→17:13)
[2018-10-11] MEDS: LEVEMIR (INSULIN DETEMIR) 1 UNITS/0.01ML SC ×2 (08:41→21:26)
[2018-10-11] MEDS: FLUBLOK(EGG FREE)(QUAD)INFLUENZA VACC 0.5ML SYRINGE (90682)18YRS&OLDER IM (08:45)
[2018-10-11] MEDS: LISINOPRIL 5 MG TAB PO (08:45)
[2018-10-11 12:08] LABS: BEDSIDE GLUCOSE 114 MG/DL (80-115)
[2018-10-12] MEDS: GABAPENTIN 400 MG CAP PO ×3 (01:02→17:21)
[2018-10-12] MEDS: VANCOMYCIN HCL 1,000 MG, VIAL MATE ADAPTER 1 EACH in D5W 250 ML IV ×2 (03:54→12:22)
[2018-10-12] MEDS: HEPARIN SOD (PORCINE) 5000 UNITS/ML VIAL SC ×3 (05:44→21:18)
[2018-10-12 05:53] LABS: HEMATOCRIT 38.4 % (42.0-52.0); HEMOGLOBIN 12.8 g/dl (13.5-17.5); MEAN CORPUSCULAR HEMOGLOBIN 27.5 pg (27.0-33.0); MEAN CORPUSCULAR HGB CONC 33.3 g/dl (32.0-36.5); MEAN CORPUSCULAR VOLUME 82.4 fl (80.0-96.0); PLATELET COUNT, AUTOMATED 199 10^3/uL (150-450); RED BLOOD COUNT 4.66 10^6/uL (4.30-6.10); RED CELL DISTRIBUTION WIDTH 12.6 % (11.5-14.5); WHITE BLOOD COUNT 5.5 10^3/uL (4.0-10.0)
[2018-10-12 06:15] LABS: ANION GAP 6 MEQ/L (8-16); BLOOD UREA NITROGEN 17 MG/DL (7-18); C REACTIVE PROTEIN QUANTITATIV 6.51 MG/DL (0.00-0.30); CALCIUM LEVEL 8.7 MG/DL (8.8-10.2); CARBON DIOXIDE LEVEL 31 MEQ/L (21-32); CHLORIDE LEVEL 104 MEQ/L (98-107); CREATININE FOR GFR 0.92 MG/DL (0.70-1.30); GLOMERULAR FILTRATION RATE > 60.0 (>49); GLUCOSE, FASTING 102 MG/DL (70-100); MAGNESIUM LEVEL 2.2 MG/DL (1.8-2.4); POTASSIUM SERUM 4.3 MEQ/L (3.5-5.1); SODIUM LEVEL 141 MEQ/L (136-145)
[2018-10-12] MEDS: LISINOPRIL 5 MG TAB PO (09:03)
[2018-10-12] MEDS: LEVEMIR (INSULIN DETEMIR) 1 UNITS/0.01ML SC ×2 (09:03→21:18)
[2018-10-12] MEDS: HumaLOG INSULIN (NovoLOG) PER UNIT SC ×3 (09:04→17:17)
[2018-10-12 11:32] LABS: VANCOMYCIN LEVEL TROUGH 18.4 UG/ML (10.0-20.0)
[2018-10-12] MEDS: AMPICILLIN SOD/SULBACTAM SOD 3 GM in D5W MINI-BAG PLUS 100 ML IV ×2 (15:05→21:17)
[2018-10-13] MEDS: GABAPENTIN 400 MG CAP PO ×3 (00:50→17:37)
[2018-10-13] MEDS: AMPICILLIN SOD/SULBACTAM SOD 3 GM in D5W MINI-BAG PLUS 100 ML IV ×4 (03:16→21:11)
[2018-10-13] MEDS: HEPARIN SOD (PORCINE) 5000 UNITS/ML VIAL SC ×3 (05:57→21:12)
[2018-10-13 06:40] LABS: HEMATOCRIT 39.5 % (42.0-52.0); MEAN CORPUSCULAR HEMOGLOBIN 27.6 pg (27.0-33.0); MEAN CORPUSCULAR HGB CONC 32.9 g/dl (32.0-36.5); MEAN CORPUSCULAR VOLUME 83.9 fl (80.0-96.0); PLATELET COUNT, AUTOMATED 204 10^3/uL (150-450); RED BLOOD COUNT 4.71 10^6/uL (4.30-6.10); RED CELL DISTRIBUTION WIDTH 12.4 % (11.5-14.5); WHITE BLOOD COUNT 5.1 10^3/uL (4.0-10.0)
[2018-10-13 07:05] LABS: ANION GAP 3 MEQ/L (8-16); BLOOD UREA NITROGEN 20 MG/DL (7-18); C REACTIVE PROTEIN QUANTITATIV 3.45 MG/DL (0.00-0.30); CALCIUM LEVEL 8.7 MG/DL (8.8-10.2); CARBON DIOXIDE LEVEL 33 MEQ/L (21-32); CHLORIDE LEVEL 104 MEQ/L (98-107); CREATININE FOR GFR 1.06 MG/DL (0.70-1.30); GLOMERULAR FILTRATION RATE > 60.0 (>49); GLUCOSE, FASTING 98 MG/DL (70-100); MAGNESIUM LEVEL 2.2 MG/DL (1.8-2.4); POTASSIUM SERUM 4.3 MEQ/L (3.5-5.1); SODIUM LEVEL 140 MEQ/L (136-145)
[2018-10-13] MEDS: HumaLOG INSULIN (NovoLOG) PER UNIT SC ×3 (07:30→17:38)
[2018-10-13] MEDS: LEVEMIR (INSULIN DETEMIR) 1 UNITS/0.01ML SC ×2 (08:48→21:12)
[2018-10-13] MEDS: LISINOPRIL 5 MG TAB PO (09:23)
[2018-10-13 21:09] LABS: BEDSIDE GLUCOSE 132 MG/DL (80-115)
[2018-10-14] MEDS: GABAPENTIN 400 MG CAP PO ×3 (02:12→18:37)
[2018-10-14] MEDS: AMPICILLIN SOD/SULBACTAM SOD 3 GM in D5W MINI-BAG PLUS 100 ML IV ×4 (02:12→20:03)
[2018-10-14 05:44] LABS: BEDSIDE GLUCOSE 127 MG/DL (80-115)
[2018-10-14 05:44] LABS: BEDSIDE GLUCOSE 114 MG/DL (80-115)
[2018-10-14 05:44] LABS: BEDSIDE GLUCOSE 130 MG/DL (80-115)
[2018-10-14 05:44] LABS: BEDSIDE GLUCOSE 145 MG/DL (80-115)
[2018-10-14 05:44] LABS: BEDSIDE GLUCOSE 187 MG/DL (80-115)
[2018-10-14 05:44] LABS: BEDSIDE GLUCOSE 136 MG/DL (80-115)
[2018-10-14 05:44] LABS: BEDSIDE GLUCOSE 88 MG/DL (80-115)
[2018-10-14] MEDS: HEPARIN SOD (PORCINE) 5000 UNITS/ML VIAL SC ×3 (06:07→22:08)
[2018-10-14 06:34] LABS: HEMATOCRIT 39.6 % (42.0-52.0); HEMOGLOBIN 12.9 g/dl (13.5-17.5); MEAN CORPUSCULAR HEMOGLOBIN 27.2 pg (27.0-33.0); MEAN CORPUSCULAR HGB CONC 32.6 g/dl (32.0-36.5); MEAN CORPUSCULAR VOLUME 83.5 fl (80.0-96.0); PLATELET COUNT, AUTOMATED 218 10^3/uL (150-450); RED BLOOD COUNT 4.74 10^6/uL (4.30-6.10); RED CELL DISTRIBUTION WIDTH 12.4 % (11.5-14.5); WHITE BLOOD COUNT 5.6 10^3/uL (4.0-10.0)
[2018-10-14 07:00] LABS: ANION GAP 3 MEQ/L (8-16); BLOOD UREA NITROGEN 19 MG/DL (7-18); C REACTIVE PROTEIN QUANTITATIV 2.05 MG/DL (0.00-0.30); CALCIUM LEVEL 8.7 MG/DL (8.8-10.2); CARBON DIOXIDE LEVEL 32 MEQ/L (21-32); CHLORIDE LEVEL 104 MEQ/L (98-107); CREATININE FOR GFR 1.03 MG/DL (0.70-1.30); GLOMERULAR FILTRATION RATE > 60.0 (>49); GLUCOSE, FASTING 105 MG/DL (70-100); MAGNESIUM LEVEL 2.3 MG/DL (1.8-2.4); POTASSIUM SERUM 4.4 MEQ/L (3.5-5.1); SODIUM LEVEL 139 MEQ/L (136-145)
[2018-10-14] MEDS: HumaLOG INSULIN (NovoLOG) PER UNIT SC ×3 (08:18→18:37)
[2018-10-14] MEDS: LEVEMIR (INSULIN DETEMIR) 1 UNITS/0.01ML SC ×2 (08:19→22:09)
[2018-10-14] MEDS: LISINOPRIL 5 MG TAB PO (09:33)
[2018-10-14 11:43] LABS: BEDSIDE GLUCOSE 143 MG/DL (80-115)
[2018-10-14 16:30] LABS: BEDSIDE GLUCOSE 110 MG/DL (80-115)
[2018-10-14 20:46] LABS: BEDSIDE GLUCOSE 139 MG/DL (80-115)
[2018-10-15] MEDS: GABAPENTIN 400 MG CAP PO ×3 (00:19→17:33)
[2018-10-15] MEDS: AMPICILLIN SOD/SULBACTAM SOD 3 GM in D5W MINI-BAG PLUS 100 ML IV (04:01)
[2018-10-15] MEDS: HEPARIN SOD (PORCINE) 5000 UNITS/ML VIAL SC ×3 (05:30→21:27)
[2018-10-15 05:43] LABS: HEMATOCRIT 38.7 % (42.0-52.0); HEMOGLOBIN 12.8 g/dl (13.5-17.5); MEAN CORPUSCULAR HEMOGLOBIN 27.8 pg (27.0-33.0); MEAN CORPUSCULAR HGB CONC 33.1 g/dl (32.0-36.5); MEAN CORPUSCULAR VOLUME 84.1 fl (80.0-96.0); PLATELET COUNT, AUTOMATED 208 10^3/uL (150-450); RED CELL DISTRIBUTION WIDTH 12.6 % (11.5-14.5); WHITE BLOOD COUNT 5.8 10^3/uL (4.0-10.0)
[2018-10-15 06:05] LABS: ANION GAP 3 MEQ/L (8-16); BLOOD UREA NITROGEN 16 MG/DL (7-18); C REACTIVE PROTEIN QUANTITATIV 1.48 MG/DL (0.00-0.30); CALCIUM LEVEL 8.5 MG/DL (8.8-10.2); CARBON DIOXIDE LEVEL 34 MEQ/L (21-32); CHLORIDE LEVEL 103 MEQ/L (98-107); CREATININE FOR GFR 1.11 MG/DL (0.70-1.30); GLOMERULAR FILTRATION RATE > 60.0 (>49); GLUCOSE, FASTING 109 MG/DL (70-100); MAGNESIUM LEVEL 2.1 MG/DL (1.8-2.4); POTASSIUM SERUM 4.3 MEQ/L (3.5-5.1); SODIUM LEVEL 140 MEQ/L (136-145)
[2018-10-15] MEDS: SILVER SULFADIAZINE 1% CR 50 GM JAR TOP ×2 (09:00→21:28)
[2018-10-15] MEDS: LISINOPRIL 5 MG TAB PO (09:35)
[2018-10-15] MEDS: LEVEMIR (INSULIN DETEMIR) 1 UNITS/0.01ML SC ×2 (09:37→21:28)
[2018-10-15] MEDS: HumaLOG INSULIN (NovoLOG) PER UNIT SC ×3 (09:38→17:32)
[2018-10-15 11:51] LABS: BEDSIDE GLUCOSE 130 MG/DL (80-115)
[2018-10-15] MEDS: CEPHALEXIN 500 MG CAP PO ×2 (12:31→17:32)
[2018-10-15 16:49] LABS: BEDSIDE GLUCOSE 116 MG/DL (80-115)
[2018-10-15 20:23] LABS: BEDSIDE GLUCOSE 214 MG/DL (80-115)
[2018-10-16] MEDS: CEPHALEXIN 500 MG CAP PO ×3 (00:53→12:30)
[2018-10-16] MEDS: GABAPENTIN 400 MG CAP PO ×2 (00:53→08:57)
[2018-10-16] MEDS: HEPARIN SOD (PORCINE) 5000 UNITS/ML VIAL SC (06:03)
[2018-10-16 06:13] LABS: HEMATOCRIT 38.9 % (42.0-52.0); HEMOGLOBIN 12.9 g/dl (13.5-17.5); MEAN CORPUSCULAR HEMOGLOBIN 27.8 pg (27.0-33.0); MEAN CORPUSCULAR HGB CONC 33.2 g/dl (32.0-36.5); MEAN CORPUSCULAR VOLUME 83.8 fl (80.0-96.0); PLATELET COUNT, AUTOMATED 211 10^3/uL (150-450); RED BLOOD COUNT 4.64 10^6/uL (4.30-6.10); RED CELL DISTRIBUTION WIDTH 12.6 % (11.5-14.5)
[2018-10-16 06:37] LABS: ANION GAP 5 MEQ/L (8-16); BLOOD UREA NITROGEN 19 MG/DL (7-18); C REACTIVE PROTEIN QUANTITATIV 1.07 MG/DL (0.00-0.30); CALCIUM LEVEL 8.8 MG/DL (8.8-10.2); CARBON DIOXIDE LEVEL 31 MEQ/L (21-32); CHLORIDE LEVEL 104 MEQ/L (98-107); CREATININE FOR GFR 1.08 MG/DL (0.70-1.30); GLOMERULAR FILTRATION RATE > 60.0 (>49); GLUCOSE, FASTING 102 MG/DL (70-100); MAGNESIUM LEVEL 2.4 MG/DL (1.8-2.4); POTASSIUM SERUM 4.5 MEQ/L (3.5-5.1); SODIUM LEVEL 140 MEQ/L (136-145)
[2018-10-16] MEDS: HumaLOG INSULIN (NovoLOG) PER UNIT SC ×2 (07:39→12:00)
[2018-10-16] MEDS: LISINOPRIL 5 MG TAB PO (08:57)
[2018-10-16] MEDS: LEVEMIR (INSULIN DETEMIR) 1 UNITS/0.01ML SC (08:57)
[2018-10-16] MEDS: SILVER SULFADIAZINE 1% CR 50 GM JAR TOP (11:26)
[2018-10-16 11:54] LABS: BEDSIDE GLUCOSE 163 MG/DL (80-115)
== END 2018-10-16 13:54 | disposition home health service (06) | DRG 383 ==
LOC: M ED 14:19 → M ED INP 18:36 → M MSPAV 19:34
PROC: 0JBQ0ZZ Excision of Right Foot Subcutaneous Tissue and Fascia, Open Approach (ICD-10-PCS; principal; 2018-10-11)
DX: L03.115 Cellulitis of right lower limb (principal); E11.40 Type 2 diabetes mellitus with diabetic neuropathy, unspecified; I10 Essential (primary) hypertension; Z79.4 Long term (current) use of insulin; Z79.899 Other long term (current) drug therapy

== ENCOUNTER → 2018-11-27 | Outpatient (CLI) | payer BC ==
[~2018-11-27] MED LIST changes: +ADVOMIS XX; +ADVOMIS4 XX; +ASPI1TAB PO; +ASPI81TA85 PO; +ASPI81TAEC PO; +CEPH500C PO; +COLA100C5 PO; +DOXY-350 PO; +GABA800T4 PO; +INSUDET SC; +KEFL500C17 PO; +LISI-542 PO; +SILV50CR TOP; -VANCOMYCIN HCL 1,000 MG, VIAL MATE ADAPTER 1 EACH in D5W 250 ML IV; +VITA1CHW8 PO; +[UNRECOGNIZED DRUG - CODE] XX; +[UNRECOGNIZED DRUG - OTHER] PO
[2018-11-27 10:40] LABS: BASO % 0.5 % (0.0-1.0); EOS # 0.1 10^3/uL (0.0-0.50); HEMATOCRIT 44.5 % (42.0-52.0); HEMOGLOBIN 14.8 g/dl (13.5-17.5); LYMPH # 1.2 10^3/uL (1.5-4.5); LYMPH % 21.4 % (24.0-44.0); MEAN CORPUSCULAR HEMOGLOBIN 27.7 pg (27.0-33.0); MEAN CORPUSCULAR HGB CONC 33.3 g/dl (32.0-36.5); MEAN CORPUSCULAR VOLUME 83.2 fl (80.0-96.0); MONO # 0.6 10^3/uL (0.0-0.8); MONO % 10.1 % (0.0-5.0); NEUTROPHILS # 3.7 10^3/uL (1.8-7.7); NEUTROPHILS % 65.6 % (36.0-66.0); PLATELET COUNT, AUTOMATED 175 10^3/uL (150-450); RED BLOOD COUNT 5.35 10^6/uL (4.30-6.10); WHITE BLOOD COUNT 5.6 10^3/uL (4.0-10.0)
[2018-11-27 11:10] LABS: ALBUMIN 4.1 GM/DL (3.2-5.2); ALT/SGPT 26 U/L (12-78); BILIRUBIN,TOTAL 0.5 MG/DL (0.2-1.0); BLOOD UREA NITROGEN 28 MG/DL (7-18); CALCIUM LEVEL 8.6 MG/DL (8.8-10.2); CARBON DIOXIDE LEVEL 30 MEQ/L (21-32); CHLORIDE LEVEL 104 MEQ/L (98-107); CREATININE FOR GFR 1.07 MG/DL (0.70-1.30); GLOMERULAR FILTRATION RATE > 60.0 (>49); GLUCOSE, FASTING 122 MG/DL (70-100); POTASSIUM SERUM 4.4 MEQ/L (3.5-5.1); SODIUM LEVEL 139 MEQ/L (136-145); TOTAL PROTEIN 7.8 GM/DL (6.4-8.2)
--- NOTE | 2018-11-27 12:35 | ECGEPIP ---
Stationary ECG Study [facility] Test Date: 2018-11-27 Pat Name: HEAVEN GARDNER Department: Room: - Gender: M Litigation Legal Assistant: : 1955 Requested By: Larissa Awad PA-C. Order Number: [id number] Reading MD: Sunday Allred Measurements Intervals [place] Rate: 64 P: 60 [place]: 166 QRS: 12 QRSD: 92 T: 43 QT: 393 QTc: 408 Interpretive Statements Normal sinus rhythm with sinus arrhythmia. Cannot exclude prior inferior wall myocardial infarction Comparison tracing not on file Electronically Signed On 11-27-2018 12:34:53 EST by Sunday Allred
== END ==
LOC: M LAB 09:49
PROVIDERS: ATTEND Physician Assistant Medical
DX: L97.512 Non-pressure chronic ulcer of other part of right foot with fat layer exposed (principal); M21.621 Bunionette of right foot; M79.672 Pain in left foot; R94.31 Abnormal electrocardiogram [ECG] [EKG]

== ENCOUNTER 2018-12-11 10:20 | Day surgery (SDC) | payer BC ==
[~2018-12-11] VITALS: Ht 172.7 cm; Wt 77.6 kg
[~2018-12-11 10:20] MED LIST changes: +LR 1,000 ML IV ONE
[2018-12-11] MEDS ORDERED: ceFAZolin 2 GM/D5W 50 ML IV BAG (J0690 PER 500MG) As Ordered ONE (11:42)
[2018-12-11] MEDS ORDERED: LIDOCAINE 2% MDV 20 ML VIAL As Ordered ONE (11:45)
[2018-12-11] MEDS ORDERED: dexameTHASONE 4 MG/ML 1ML VIAL (J1100) As Ordered ONE (11:45)
[2018-12-11] MEDS ORDERED: BUPIVACAINE HCL 0.5% 30 ML VIAL As Ordered ONE (11:45)
[2018-12-11] MEDS ORDERED: NEOSPORIN GU IRRIG 20 ML VIAL As Ordered ONE (11:46)
[2018-12-11] MEDS ORDERED: BACITRACIN PWD 50,000 UNITS VIAL As Ordered ONE (11:46)
[2018-12-11] MEDS ORDERED: fentaNYL 100 MCG/2 ML INJECTION (J3010) As Ordered ONE (12:54)
[2018-12-11] MEDS ORDERED: MIDAZOLAM INJ 2 MG/2 ML VIAL (J2250) As Ordered ONE (12:54)
[2018-12-11] MEDS ORDERED: PROPOFOL 200 MG/20 ML VIAL As Ordered ONE (12:54)
[2018-12-11] MEDS ORDERED: LR 1,000 ML IV SCH (14:45)
[2018-12-11] MEDS ORDERED: fentaNYL 100 MCG/2 ML INJECTION (J3010) IV PRN (14:45)
[2018-12-11] MEDS ORDERED: ONDANSETRON 4MG/2ML VIAL (J2405) IV PRN (14:45)
[2018-12-11] MEDS ORDERED: PERCOCET 5MG/325MG TAB PO PRN (14:45)
[2018-12-11] MEDS ORDERED: METOCLOPRAMIDE INJ 10MG/2ML VIAL (J2765) IV PRN (14:45)
[2018-12-11 14:50] VITALS: BP 149/77
--- NOTE | 2018-12-11 17:58 | REP ---
Right foot series: Three views. History: Postop. Comparison study: October 10, 2018. Findings: Three views of the right foot demonstrate two metallic pins in the fifth metatarsal. Today's views are obtained through overlying cast material. No other significant finding. Electronically Signed by Marco Henao MD 12/11/2018 06:00 P
--- NOTE | 2018-12-14 16:35 | RO ---
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 PROCEDURE: 5th metatarsal long oblique osteotomy with medial and dorsal transposition and internal screw fixation 2.5 mm x 18 and 2.5 x 14 mm fully threaded Arthrex compression screw. SURGEON: Martinez Lara DPM TWISTHAND: None. ANESTHESIA: Local monitored anesthesia care (MAC). HEMOSTASIS: Ankle pneumatic tourniquet at 225 mmHg for 54 minutes. HARDWARE UTILIZED: Arthrex fully threaded compression screw, headless, 2.5 x 18 and a 2.5 x 14. DESCRIPTION OF PROCEDURE: On 12/11/2018, this 63-year-old white male was taken from his hospital room to the operating room and placed on the operating table in the supine position. Following the induction of IV sedation and local and regional anesthesia, the right lower extremity was prepped and draped in the usual aseptic manner. Attention was directed to the lateral surface of the patient's right foot where a 9 cm incision was placed on the lateral surface of the 5th metatarsal area. The incision was deepened through subcutaneous tissues and all coursing venous tributaries were identified, underscored, clamped, cut, ligated and electrocoagulated as necessary. Dorsal cutaneous nerve was protected and medially retracted at the base of the 5th metatarsal. An oblique osteotomy was then placed with a distal plantar to proximal dorsal orientation. The 1st part of the osteotomy cut was the more dorsal proximal aspect. When this was cut through, a Megha wire was driven to be used as a pivot point. The osteotomy was then completed just proximal to the head of the 5th metatarsal. The obliquity of the cut was made so that transposition would also equal elevation of the 5th metatarsal. The 5th metatarsal was then pivoted into a straight orientation, and a 2.5 x 18 mm screw was placed through the hinge point. An additional screw was placed distally 2.5 x 14. The osteotomy was noted to be stable in all three cardinal planes. The wound was flushed with copious amounts of dilute bacitracin, neomycin and polymyxin B solution. Attention was directed towards closure where the capsular and periosteal structures were coapted and maintained utilizing #2-0 Monocryl in a simple interrupted type fashion. Subcutaneous tissues were coapted and maintained using #4-0 Monocryl in a simple interrupted type fashion. Skin incision was coapted and maintained utilizing #4-0 Prolene in a simple interrupted and horizontal mattress type fashion. Attention was directed towards bandaging where a sterile compressive bandage was applied consisting of Adaptic, 4 x 4s, 4 x 4 splints and Ritu. Ankle pneumatic tourniquet was rapidly deflated. A boot fiberglass cast was then placed on the patient's right foot. The patient having apparently tolerated the surgical procedure well was taken from the operating room to the recovery room for further monitoring by the anesthesia department. Postoperative instructions given upon discharge.
== END 2018-12-11 15:36 | disposition home or self-care (01) ==
LOC: M SDC 10:20
PROVIDERS: ATTEND Podiatrist
DX: M21.621 Bunionette of right foot (principal); I10 Essential (primary) hypertension; Z79.899 Other long term (current) drug therapy; Z79.4 Long term (current) use of insulin; E11.621 Type 2 diabetes mellitus with foot ulcer; L97.512 Non-pressure chronic ulcer of other part of right foot with fat layer exposed; E11.42 Type 2 diabetes mellitus with diabetic polyneuropathy
CPT/HCPCS: 28110; 73630; 88300; C1713; J0690; J1100; J2250; J3010

== ENCOUNTER → 2019-01-07 | Outpatient (CLI) | payer BC ==
[~2019-01-07] MED LIST changes: -LR 1,000 ML IV ONE
[2019-01-07 17:27] LABS: BLOOD UREA NITROGEN 22 MG/DL (7-18); CARBON DIOXIDE LEVEL 31 MEQ/L (21-32); CHLORIDE LEVEL 101 MEQ/L (98-107); CHOLESTEROL LEVEL 222 MG/DL (<200); CHOLESTEROL RISK RATIO 6.342 (<5); CREATININE FOR GFR 1.06 MG/DL (0.70-1.30); GLOMERULAR FILTRATION RATE > 60.0 (>49); GLUCOSE, FASTING 116 MG/DL (70-100); HDL CHOLESTEROL 35 MG/DL (>40); LDL CHOLESTEROL 129 MG/DL (<100); NON-HDL-C 187 MG/DL; POTASSIUM SERUM 4.9 MEQ/L (3.5-5.1); SODIUM LEVEL 139 MEQ/L (136-145); TRIGLYCERIDES LEVEL 292 MG/DL (<150)
[2019-01-07 17:54] LABS: CREATININE, URINE 87.4 MG/DL; MALB URINE SIEMENS 6.1 MG/L; MAU/CREAT RATIO 6.9 MCG/MG (0.0-30.0)
[2019-01-07 17:57] LABS: HEMOGLOBIN A1c 6.9 %
== END ==
LOC: M WUC 12:00
PROVIDERS: ATTEND Physician Assistant Medical
DX: E11.40 Type 2 diabetes mellitus with diabetic neuropathy, unspecified (principal)

== ENCOUNTER → 2019-02-02 | Outpatient (CLI) | payer BC ==
[~2019-02-02] MED LIST changes: -ASPI1TAB PO; +ASPI81TA26 PO
[2019-02-02 18:03] LABS: ALBUMIN 4.5 GM/DL (3.2-5.2); ALT/SGPT 25 U/L (12-78); BASO % 0.3 % (0.0-1.0); BILIRUBIN,TOTAL 0.6 MG/DL (0.2-1.0); BLOOD UREA NITROGEN 17 MG/DL (7-18); CALCIUM LEVEL 8.9 MG/DL (8.8-10.2); CARBON DIOXIDE LEVEL 32 MEQ/L (21-32); CHLORIDE LEVEL 103 MEQ/L (98-107); CREATININE FOR GFR 1.12 MG/DL (0.70-1.30); EOS # 0.1 10^3/uL (0.0-0.50); EOS % 1.2 % (0.0-3.0); FREE T4 1.09 NG/DL (0.76-1.46); FREE THYROXINE INDEX 2.9 % (1.4-3.8); GLOMERULAR FILTRATION RATE > 60.0 (>49); GLUCOSE, FASTING 90 MG/DL (70-100); HEMATOCRIT 45.6 % (42.0-52.0); HEMOGLOBIN 15.3 g/dl (13.5-17.5); LYMPH # 1.1 10^3/uL (1.5-4.5); LYMPH % 16.2 % (24.0-44.0); MEAN CORPUSCULAR HEMOGLOBIN 28.1 pg (27.0-33.0); MEAN CORPUSCULAR HGB CONC 33.6 g/dl (32.0-36.5); MEAN CORPUSCULAR VOLUME 83.7 fl (80.0-96.0); MONO # 0.6 10^3/uL (0.0-0.8); MONO % 8.8 % (0.0-5.0); NEUTROPHILS # 5.1 10^3/uL (1.8-7.7); NEUTROPHILS % 73.2 % (36.0-66.0); PLATELET COUNT, AUTOMATED 181 10^3/uL (150-450); POTASSIUM SERUM 4.2 MEQ/L (3.5-5.1); RED BLOOD COUNT 5.45 10^6/uL (4.30-6.10); RHEUMATOID FACTOR QUANT < 10.0 IU/ML (<15.0); SODIUM LEVEL 138 MEQ/L (136-145); T UPTAKE 33 % (33-40); THYROID STIMULATING HORMONE 0.955 uIU/ML (0.358-3.740); THYROXINE (T4) 8.9 UG/DL (4.5-12.0); TOTAL PROTEIN 7.9 GM/DL (6.4-8.2); WHITE BLOOD COUNT 6.9 10^3/uL (4.0-10.0)
[2019-02-02 18:05] LABS: FOLATE 8.1 NG/ML; VITAMIN B12 LEVEL 543 PG/ML
[2019-02-02 18:35] LABS: ERYTHROCYTE SEDIMENTATION RATE 5 mm/hr (0-20)
[2019-02-04 13:22] LABS: ALBUMIN 4.69 GM/DL (3.29-5.55); ALBUMIN % 59.4 % (55.8-66.1); ALPHA-1-GLOBULIN % 3.1 % (2.9-4.9); ALPHA-1-GLOBULINS 0.24 GM/DL (0.17-0.41); ALPHA-2-GLOBULINS 0.72 GM/DL (0.42-0.99); ALPHA-2-GLOBULINS % 9.1 % (7.1-11.8); BETA-1-GLOBULINS 0.47 GM/DL (0.28-0.60); BETA-2-GLOBULINS 0.36 GM/DL (0.19-0.55); BETA-2-GLOBULINS % 4.6 % (3.2-6.5); GAMMA GLOBULIN % 17.8 % (11.1-18.8); GAMMA GLOBULINS 1.41 GM/DL (0.65-1.58)
[2019-02-06 15:33] LABS: ANTINUCLEAR ANTIBODIES DIRECT Negative (Negative); Methylmalonic Acid 222 nmol/L (0-378); VITAMIN E(ALPHA TOCOPHEROL) 9.9 mg/L (9.0-29.0); VITAMIN E(GAMMA TOCOPHEROL) 2.4 mg/L (0.5-4.9)
[2019-02-08 00:08] LABS: VITAMIN B1 LEVEL WHOLE BLOOD 121.3 nmol/L (66.5-200.0); VITAMIN B6,PYRIDOXAL PHOSPHATE 4.4 ug/L (5.3-46.7)
== END ==
LOC: M LAB 16:08
PROVIDERS: ATTEND Psychiatry & Neurology Neurology
DX: R20.2 Paresthesia of skin (principal); E11.9 Type 2 diabetes mellitus without complications; E07.9 Disorder of thyroid, unspecified

== ENCOUNTER → 2019-03-10 | Outpatient (CLI) | payer BC ==
--- NOTE | 2019-03-10 20:32 | REP ---
Clinical: Claudication left lower extremity. Technique: Real time onofre scale and color Doppler evaluation of the left lower extremity arterial vasculature using linear high frequency transducer. Findings: The ankle to brachial index of the left lower extremity is 1.2. Onofre scale images again demonstrate mild atherosclerotic changes throughout the left lower extremity along with mild stenosis at the mid anterior tibial artery unchanged from prior examination with distal monophasic wave patterns. Color Doppler interrogation demonstrates normal triphasic wave patterns and velocities from the common femoral vein through the popliteal vein and proximal anterior and posterior tibial arteries. Monophasic wave patterns with relatively normal velocities are noted through the distal anterior and posterior tibial arteries. PSV(cm/sec) LEFT Common femoral artery 155.3 cm/s Profunda femoris artery 92.0 cm/s Proximal superficial femoral artery 117.6 cm/s Mid superficial femoral artery 111.1 cm/s Distal superficial femoral artery 132.4 cm/s Popliteal artery 81.4 cm/s Proximal RYAN 49.1 cm/s Tibioperoneal trunk 115.7 cm/s Proximal HORSE RIDING COACH OR INSTRUCTOR 75.2 cm/s Distal HORSE RIDING COACH OR INSTRUCTOR 87.6 cm/s Distal RYNA 94.4 cm/s Impression: Mild atherosclerotic changes throughout the left lower extremity along with stable mild stenosis at the mid anterior tibial artery unchanged from prior examination. Electronically Signed by Joe Anderson MD 03/10/2019 08:23 P
== END ==
LOC: M RAD 12:58
PROVIDERS: ATTEND Surgery Vascular Surgery
DX: I70.213 Atherosclerosis of native arteries of extremities with intermittent claudication, bilateral legs (principal)

== ENCOUNTER → 2019-05-11 | Outpatient (CLI) | payer BC, SELFPAY ==
[~2019-05-11] MED LIST changes: +ATOR1TAB19 PO; +MULTCAP PO
--- NOTE | 2019-05-11 10:47 | ECGEPIP ---
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
[2019-05-11 10:58] LABS: BASO % 0.4 % (0.0-1.0); EOS # 0.1 10^3/uL (0.0-0.50); EOS % 2.7 % (0.0-3.0); HEMATOCRIT 44.7 % (42.0-52.0); HEMOGLOBIN 14.8 g/dl (13.5-17.5); LYMPH # 1.4 10^3/uL (1.5-4.5); LYMPH % 26.6 % (24.0-44.0); MEAN CORPUSCULAR HEMOGLOBIN 28.6 pg (27.0-33.0); MEAN CORPUSCULAR HGB CONC 33.1 g/dl (32.0-36.5); MEAN CORPUSCULAR VOLUME 86.5 fl (80.0-96.0); MONO # 0.5 10^3/uL (0.0-0.8); MONO % 9.2 % (0.0-5.0); NEUTROPHILS # 3.1 10^3/uL (1.8-7.7); NEUTROPHILS % 60.9 % (36.0-66.0); PLATELET COUNT, AUTOMATED 169 10^3/uL (150-450); RED BLOOD COUNT 5.17 10^6/uL (4.30-6.10); WHITE BLOOD COUNT 5.1 10^3/uL (4.0-10.0)
[2019-05-11 11:23] LABS: ALBUMIN 3.9 GM/DL (3.2-5.2); ALT/SGPT 30 U/L (12-78); BILIRUBIN,TOTAL 0.4 MG/DL (0.2-1.0); BLOOD UREA NITROGEN 23 MG/DL (7-18); CARBON DIOXIDE LEVEL 33 MEQ/L (21-32); CHLORIDE LEVEL 110 MEQ/L (98-107); CREATININE FOR GFR 1.18 MG/DL (0.70-1.30); GLOMERULAR FILTRATION RATE > 60.0 (>49); GLUCOSE, FASTING 123 MG/DL (70-100); POTASSIUM SERUM 3.8 MEQ/L (3.5-5.1); SODIUM LEVEL 137 MEQ/L (136-145); TOTAL PROTEIN 7.7 GM/DL (6.4-8.2)
== END ==
LOC: M LAB 10:07
PROVIDERS: ATTEND Podiatrist
DX: M79.674 Pain in right toe(s) (principal); S93.325A Dislocation of tarsometatarsal joint of left foot, initial encounter; X58.XXXA Exposure to other specified factors, initial encounter; Y92.89 Other specified places as the place of occurrence of the external cause

== ENCOUNTER 2019-05-28 05:59 | Day surgery (SDC) | payer BC, SELFPAY ==
[~2019-05-28] VITALS: Ht 172.7 cm; Wt 76.7 kg
[2019-05-28] MEDS ORDERED: LIDOCAINE 1% MDV 20ML VIAL SQ PRN (06:00)
[2019-05-28] MEDS ORDERED: LR 1,000 ML IV ONE (06:00)
[2019-05-28] MEDS ORDERED: BUPIVACAINE HCL 0.25% 30 ML VIAL As Ordered ONE (06:57)
[2019-05-28] MEDS ORDERED: dexameTHASONE 4 MG/ML 1ML VIAL (J1100) As Ordered ONE (06:58)
[2019-05-28] MEDS ORDERED: BACITRACIN PWD 50,000 UNITS VIAL As Ordered ONE (06:58)
[2019-05-28] MEDS ORDERED: NEOSPORIN GU IRRIG 20 ML VIAL As Ordered ONE (06:58)
[2019-05-28] MEDS ORDERED: LIDOCAINE 2% MDV 20 ML VIAL As Ordered ONE (06:59)
[2019-05-28] MEDS ORDERED: BUPIVACAINE HCL 0.5% 30 ML VIAL As Ordered ONE (07:15)
[2019-05-28] MEDS ORDERED: MIDAZOLAM INJ 2 MG/2 ML VIAL (J2250) As Ordered ONE (07:46)
[2019-05-28] MEDS ORDERED: ONDANSETRON 4MG/2ML VIAL (J2405) As Ordered ONE (07:46)
[2019-05-28] MEDS ORDERED: PROPOFOL 200 MG/20 ML VIAL As Ordered ONE (07:46)
[2019-05-28] MEDS ORDERED: LIDOCAINE 2% INJ 100 MG/5 ML SDV (FOR ANES.) As Ordered ONE (07:46)
[2019-05-28] MEDS ORDERED: fentaNYL 100 MCG/2 ML INJECTION (J3010) As Ordered ONE (07:46)
[2019-05-28] MEDS ORDERED: ePHEDrine SULFATE 25 MG/5 ML(5MG/ML) SYRINGE As Ordered ONE (08:03)
[2019-05-28 08:40] VITALS: BP 157/78
--- NOTE | 2019-05-28 08:44 | REP ---
Clinical: Baseline postoperative evaluation. Technique: Portable AP, lateral, oblique views of the left foot. Findings: The patient is noted to be status post partial surgical resection involving the [id number] aspect of the fifth metatarsal bone. Impression: Partially surgical resection involving the fifth metatarsal bone. Electronically Signed by Joe Anderson MD 05/28/2019 08:36 A
[2019-05-28] MEDS ORDERED: oxyCODONE 5MG TAB PO PRN (08:45)
[2019-05-28] MEDS ORDERED: ONDANSETRON 4MG/2ML VIAL (J2405) IV PRN (08:45)
[2019-05-28] MEDS ORDERED: LR 1,000 ML IV SCH (08:45)
--- NOTE | 2019-05-29 14:20 | RO ---
DATE OF PROCEDURE: 05/28/2019 PREPROCEDURE DIAGNOSIS: Abscess, possible osteomyelitis 5th metatarsal left foot. POSTPROCEDURE DIAGNOSIS: Abscess, possible osteomyelitis 5th metatarsal left foot. PROCEDURE: Fifth metatarsal head resection with incisional debridement of infected tissue left foot. SURGEON: Dr. Martinez Lara DPM COMPUTER FIELD TECHNICIAN: None. ANESTHESIA: Local MAC IRRIGATION: Dilute bacitracin, neomycin and polymyxin B solution. ESTIMATED BLOOD LOSS: 30 mL. DRAINS UTILIZED: 1/4-inch Iodoform gauze. DESCRIPTION OF PROCEDURE: On 05/28/2019, this 63-year-old white male was taken from his hospital room to the operating room and placed on the operating table in the supine position. Following the induction of intravenous (IV) sedation and local and regional anesthesia, the left lower extremity was prepped and draped in the usual aseptic manner. Attention was directed to the patient's left foot. There was a cock over 5th toe deformity noted of the left foot. However, the patient acquired an infection, according to the patient 2 days ago. He has an ulceration that probed to bone. Therefore, the planned procedure could not be performed. Therefore, planned an incisional debridement to the level of infected tissue. After sharp surgical debridement, the bone was present in the wound. Therefore, the procedure was changed to a 5th metatarsal head resection, 5th metatarsal left foot. Pre-debridement number is a 2 mm x 2 mm x 3 mm in depth ulceration with an 8 mm hyperkeratotic rim, which probed to bone. Post-debridement, the ulcer measured 13 mm x 15 mm, 10 mm in depth since the 5th metatarsal head was resected. After sharp incisional debridement to the level of the capsule and bone, the Holmium retractor was put in the wound, just at the ulcer site, an osteotomy was performed, slightly obliqued in a medial direction and the bone was resected. Intraoperative C-arm image revealed no nonviable appearing bone. Bacitracin, neomycin and polymyxin B solution. All bleeders as encountered were electrocoagulated. The wound was packed with 1/4-inch Iodoform gauze and a dry sterile dressing was applied to the patient's left foot. The patient having apparently tolerated the surgical procedure was sent from the operating room to the recovery room for further monitoring by the anesthesia department. Aerobic and anaerobic cultures were taken of the soft tissue as well as bone. His questions were answered. He will be placed on Augmentin 875 mg, dispense 20, one by mouth twice a day. This can be tailored according to his culture and sensitivity. MTDD
== END 2019-05-28 09:15 | disposition home or self-care (01) ==
LOC: M SDC 05:59
PROVIDERS: ATTEND Podiatrist
DX: E11.621 Type 2 diabetes mellitus with foot ulcer (principal); E11.42 Type 2 diabetes mellitus with diabetic polyneuropathy; L97.529 Non-pressure chronic ulcer of other part of left foot with unspecified severity; I10 Essential (primary) hypertension; E78.5 Hyperlipidemia, unspecified; Z79.4 Long term (current) use of insulin; Z79.899 Other long term (current) drug therapy
CPT/HCPCS: 28122; 73630; 87070; 87075; 87076; 87077; 87186; 87205; J0690; J1100; J2250; J2405; J3010

== ENCOUNTER → 2019-07-26 | Outpatient (CLI) | payer BC ==
[2019-07-26 10:38] LABS: HEMOGLOBIN A1c 6.5 %
[2019-07-26 10:50] LABS: BLOOD UREA NITROGEN 28 MG/DL (7-18); CALCIUM LEVEL 8.9 MG/DL (8.8-10.2); CARBON DIOXIDE LEVEL 30 MEQ/L (21-32); CHLORIDE LEVEL 101 MEQ/L (98-107); CHOLESTEROL LEVEL 131 MG/DL (<200); CHOLESTEROL RISK RATIO 3.358 (<5); CREATININE FOR GFR 1.17 MG/DL (0.70-1.30); GLOMERULAR FILTRATION RATE > 60.0 (>49); GLUCOSE, FASTING 98 MG/DL (70-100); HDL CHOLESTEROL 39 MG/DL (>40); LDL CHOLESTEROL 57 MG/DL (<100); NON-HDL-C 92 MG/DL; POTASSIUM SERUM 4.4 MEQ/L (3.5-5.1); SODIUM LEVEL 138 MEQ/L (136-145); TRIGLYCERIDES LEVEL 175 MG/DL (<150)
== END ==
LOC: M LAB 09:38
PROVIDERS: ATTEND Physician Assistant Medical
DX: E11.21 Type 2 diabetes mellitus with diabetic nephropathy (principal)

== ENCOUNTER → 2019-09-24 | Outpatient (CLI) | payer BC, MEDICARE ==
--- NOTE | 2019-09-24 15:53 | REP ---
BILATERAL LOWER EXTREMITY DUPLEX DOPPLER ARTERIAL ULTRASOUND: Real-time ultrasound evaluation and duplex Doppler interrogation of bilateral lower extremity arterial systems is performed. JOSSELYN right is 1.21 and left 1.14. There is mild to moderate plaquing seen diffusely bilaterally. Biphasic and triphasic waveforms are seen throughout the right lower extremity, and in the left common femoral artery and profunda. Monophasic waveforms are seen in the left superficial femoral artery, popliteal artery and calf arteries. Elevated peak systolic velocities again seen in the proximal to mid left anterior tibial arteries with suspected stenosis at that location, as seen on prior study 03/10/2019 unchanged. PEAK SYSTOLIC VELOCITY RIGHT LEFT Common femoral artery 171.2 cm/s 171.4 cm/s Profunda 135.7 151.5 SFA 125.2 159.6 Popliteal 97.5 116.8 Proximal anterior tibial artery 67.8 195.0 Tibioperoneal trunk 81.5 205.0 Proximal posterior tibial artery 69.9 114.4 Distal posterior tibial artery 92.0 117.9 Distal anterior tibial artery 58.8 149.8 IMPRESSION: No significant change when compared to the prior study 03/10/2019 with suspected stenosis of the proximal left anterior tibial artery. Electronically Signed by Mark Onofre MD 09/27/2019 10:10 A
== END ==
LOC: M RAD 12:28
PROVIDERS: ATTEND Physician Assistant
DX: I70.213 Atherosclerosis of native arteries of extremities with intermittent claudication, bilateral legs (principal)

== ENCOUNTER → 2019-11-22 | Outpatient (CLI) | payer MEDICARE ==
[~2019-11-22] MED LIST changes: +ALPH600C PO; +HEPARIN 1,000 UNITS/ML 10ML VIAL (FOR RADIOLOGY& DIALYSIS ONLY) As Ordered ONE; +ISOVUE-300 61% 50ML VIAL (Q9967) As Ordered ONE; +LIDOCAINE 1% MDV 20ML VIAL As Ordered ONE; +MIDAZOLAM INJ 2 MG/2 ML VIAL (J2250) As Ordered ONE; +NITROGLYCERIN IN D5W 25MG/250ML (100MCG/ML) As Ordered ONE; +fentaNYL 100 MCG/2 ML INJECTION (J3010) As Ordered ONE
[2019-11-22 09:48] LABS: HEMOGLOBIN 14.7 g/dl (13.5-17.5); MEAN CORPUSCULAR HGB CONC 32.7 g/dl (32.0-36.5); MEAN CORPUSCULAR VOLUME 85.7 fl (80.0-96.0); PLATELET COUNT, AUTOMATED 149 10^3/uL (150-450); RED BLOOD COUNT 5.25 10^6/uL (4.30-6.10); WHITE BLOOD COUNT 6.6 10^3/uL (4.0-10.0)
[2019-11-22 10:37] LABS: ALBUMIN 4.1 GM/DL (3.2-5.2); ALT/SGPT 60 U/L (12-78); BILIRUBIN,TOTAL 0.3 MG/DL (0.2-1.0); BLOOD UREA NITROGEN 26 MG/DL (7-18); CARBON DIOXIDE LEVEL 31 MEQ/L (21-32); CHLORIDE LEVEL 106 MEQ/L (98-107); CREATININE FOR GFR 1.12 MG/DL (0.70-1.30); GLOMERULAR FILTRATION RATE > 60.0 (>49); GLUCOSE, FASTING 132 MG/DL (70-100); POTASSIUM SERUM 4.4 MEQ/L (3.5-5.1); SODIUM LEVEL 141 MEQ/L (136-145); TOTAL PROTEIN 7.5 GM/DL (6.4-8.2)
--- NOTE | 2019-11-22 11:22 | ROOPDOC ---
[facility] Report Of Operation Report of Operation DATE OF PROCEDURE: 11/22/19 PREPROCEDURE DIAGNOSES: Atherosclerosis of the needed vessels with nonhealing wound left foot POSTPROCEDURE DIAGNOSES: Same. PROCEDURE: 1. Ultrasound-guided access right common femoral artery 2. Aortoiliofemoral arteriogram, selection left common femoral artery and left lower extremity arteriogram, selection left popliteal artery and left lower extremity runoff 3. Angioplasty left anterior tibial artery with 3 x 100 Superior balloon 4. Angioplasty left tibioperoneal trunk and peroneal artery with 3 x 100 Superior balloon 5. Completion arteriograms 6. Mynx closure right common femoral artery SURGEON: Parker Doe MD ANESTHESIA: Local anesthesia 6 mL lidocaine. Moderate intravenous conscious sedation with supervised by Dr. Doe. The patient was independently monitored by registered nurse assigned to the Department of radiology using automated blood pressure, EKG, and pulse oximetry. The detailed sedation record is permanently stored in the hospital information system. The following is a brief sedation record: Start time 10:13, stop time 10:59, Versed 1 mg IV, fentanyl 50 g IV, heparin 5000 units IV. CONTRAST: 46 mL Isovue-300 INDICATION FOR PROCEDURE: Mr. Harper is a 64-year-old gentleman with atherosclerosis the [place] vessel secondary to diabetes and a nonhealing wound of the left foot. Risks benefits and alternatives to an arteriogram potential intervention were explained to the patient and he is agreeable to proceed. Informed consent was obtained. INTERPRETATION: 1. The aortoiliac segments are widely patent with no stenoses or ectasia noted. The left common femoral artery is widely patent and run faster widely patent profunda and superficial femoral artery. The left popliteal artery is also widely patent. The patient does have mild tibial disease proximally. He has a 70% stenosis 5 cm from the origin of the AT, diminutive size of the peroneal artery before it I for Cates into a thready peroneal that runs off to the ankle and a more medial branch that [place] through the middle of the calf. The posterior tibial artery is widely patent and is the main runoff to the foot. 2. After angioplasty of the anterior tibial artery, there was less than 20% residual stenosis and rapid flow through the vessel to the foot. 3. After angioplasty of the peroneal artery, there was still greater than 20% stenosis and a second angioplasty was performed. Following this there was widely patent inflow through the origin of the peroneal artery as well. 4. There was some spasm at the proximal posterior tibial artery, and 100 g of nitroglycerin was administered with visible relief of the majority of the spasm. There was rapid flow all the way to the foot on completion arteriograms. REPORT OF OPERATION: The patient was brought to the angiographic suite in stable condition. His bilateral groins were prepped and draped in a sterile fashion. A timeout was performed. Sedation was a job hand without compensation. Local an esthesia was administered to the skin and subcutaneous tissue over the right groin and a microneedle was used to access the right common femoral artery under ultrasound guidance. A wire was passed through this access under fluoroscopic guidance and a micro-sheath was placed. Through this access, a Glidewire was advanced into the aorta under fluoroscopic guidance and the sheath was exchanged for 6 [place] sheath and this was flushed with saline. Infusion catheter was advanced into the aorta and the wire was removed. In aortoiliofemoral arteriogram was performed, please see above for interpretation. We then went up and over the bifurcation with a Glidewire and infusion catheter and selected the left common femoral artery. Left lower extremity arteriograms were performed, please see interpretation above. We then navigated the wire under fluoroscopic guidance down into the popliteal artery. We exchanged sheath for 90 cm 6 [place] sheath over the wire to select the distal popliteal artery. The sheath was flushed with saline. We then advanced a Glidewire into the anterior tibial artery and carefully navigated passing area of stenosis. Over the wire we placed a 3 x 100 Superior balloon and did a three-minute inflations. There was less than 20% residual stenosis at the area of heavy calcification and no dissection embolization or sensation was noted. We then navigated the wire into the tibioperoneal trunk and the main peroneal artery and angioplasty with a 3 x 100 balloon for three-minute inflations. Following this were still some residual stenosis we did a second angioplasty for 3 minutes. After this we noted that there was some spasm in the posterior tibial artery as well as in the peroneal artery, therefore we infused 100 g of nitroglycerin through the sheath into the tibial vessels. After a few minutes a completion arteriogram showed the majority of the spasm had resolved and there was rapid flow through the feet with a marked improvement. This concluded our procedure. We exchanged sheath for short 6 [place] sheath and plan a Mynx closure device in the right common femoral artery with good hemostasis. Pressure was held for 10 minutes the patient was taken to recovery in stable condition. There were no complications and he tolerated the sedation and the procedure well. ESTIMATED BLOOD LOSS: Approximately 3 mL. COMPLICATIONS: None. PLAN: Our plan is to see the patient back in clinic in a week and check his right groin access site and his perfusion in the left lower extremity. It is okay for him to resume his home diet and medications. PARKER DOE MD Nov 22, 2019 11:22
[2019-11-22 15:16] VITALS: BP 141/72
== END ==
LOC: M IRPRO 08:27
PROVIDERS: ATTEND Surgery Vascular Surgery
DX: I70.245 Atherosclerosis of native arteries of left leg with ulceration of other part of foot (principal); E11.51 Type 2 diabetes mellitus with diabetic peripheral angiopathy without gangrene; E11.622 Type 2 diabetes mellitus with other skin ulcer
CPT/HCPCS: 37228; 37232; 75710; 80053; 85027; 99152; 99153; C1725; C1760; C1769; C1887; C1894; J2250; J3010; Q9967

== ENCOUNTER → 2019-12-15 | Outpatient (CLI) | payer MEDICARE ==
[~2019-12-15] MED LIST changes: -HEPARIN 1,000 UNITS/ML 10ML VIAL (FOR RADIOLOGY& DIALYSIS ONLY) As Ordered ONE; -ISOVUE-300 61% 50ML VIAL (Q9967) As Ordered ONE; -LIDOCAINE 1% MDV 20ML VIAL As Ordered ONE; -MIDAZOLAM INJ 2 MG/2 ML VIAL (J2250) As Ordered ONE; -NITROGLYCERIN IN D5W 25MG/250ML (100MCG/ML) As Ordered ONE; -fentaNYL 100 MCG/2 ML INJECTION (J3010) As Ordered ONE
--- NOTE | 2019-12-15 15:41 | REP ---
Clinical: Symptoms related to atherosclerotic disease and intermittent claudication. Technique: Real time onofre scale and color Doppler evaluation of the bilateral lower extremity arterial vasculature using linear high frequency transducer. Findings: Onofre scale and color images demonstrate mild to moderate amounts of atheromatous plaquing bilaterally with mild stenosis suggested in the left proximal anterior tibial artery and left popliteal artery. Doppler interrogation demonstrates triphasic and biphasic arterial wave forms. Peak systolic velocities (cm/sec) RIGHT LEFT JOSSELYN 1.13 1.18 Common femoral artery 131 114 Profunda femoris 100 114 SFA (proximal) 107 119 SFA (mid) 107 103 SFA (distal) 122 99.6 Popliteal artery 75.3 92/162 RYAN (prox.) 55.2 82/138 Tibioperoneal trunk 53.1 71.8 SCRAP HANDLER (prox.) 56.5 52.6 SCRAP HANDLER (distal) 64.4 60.4 RYAN (distal) 60.0 73.0 Impression: Atheromatous changes with mild stenosis suggested in the left popliteal artery and left proximal anterior tibial artery. Electronically Signed by Joe Anderson MD 12/15/2019 03:33 P
== END ==
LOC: M RAD 12:55
PROVIDERS: ATTEND Surgery Vascular Surgery
DX: I70.213 Atherosclerosis of native arteries of extremities with intermittent claudication, bilateral legs (principal)

== ENCOUNTER → 2020-01-18 | Outpatient (CLI) | payer MEDICARE ==
[2020-01-18 16:46] LABS: BASO % 0.7 % (0.0-1.0); EOS # 0.1 10^3/uL (0.0-0.5); HEMATOCRIT 45.4 % (42.0-52.0); LYMPH # 1.4 10^3/uL (1.5-5.0); LYMPH % 26.6 % (24.0-44.0); MEAN CORPUSCULAR HEMOGLOBIN 28.6 pg (27.0-33.0); MEAN CORPUSCULAR VOLUME 86.6 fl (80.0-96.0); MONO # 0.5 10^3/uL (0.0-0.8); MONO % 9.6 % (0.0-5.0); NEUTROPHILS # 3.3 10^3/uL (1.5-8.5); NEUTROPHILS % 60.9 % (36.0-66.0); PLATELET COUNT, AUTOMATED 176 10^3/uL (150-450); RED BLOOD COUNT 5.24 10^6/uL (4.30-6.10); WHITE BLOOD COUNT 5.4 10^3/uL (4.0-10.0)
[2020-01-18 16:52] LABS: ALBUMIN 4.1 GM/DL (3.2-5.2); ALT/SGPT 64 U/L (12-78); BILIRUBIN,TOTAL 0.5 MG/DL (0.2-1.0); BLOOD UREA NITROGEN 30 MG/DL (7-18); CALCIUM LEVEL 8.8 MG/DL (8.8-10.2); CARBON DIOXIDE LEVEL 32 MEQ/L (21-32); CHLORIDE LEVEL 104 MEQ/L (98-107); CHOLESTEROL LEVEL 114 MG/DL (<200); CHOLESTEROL RISK RATIO 3.562 (<5); CREATININE FOR GFR 1.11 MG/DL (0.70-1.30); GLOMERULAR FILTRATION RATE > 60.0 (>49); GLUCOSE, FASTING 120 MG/DL (70-100); HDL CHOLESTEROL 32 MG/DL (>40); LDL CHOLESTEROL 48 MG/DL (<100); NON-HDL-C 82 MG/DL; POTASSIUM SERUM 4.3 MEQ/L (3.5-5.1); SODIUM LEVEL 139 MEQ/L (136-145); TOTAL PROTEIN 7.4 GM/DL (6.4-8.2); TRIGLYCERIDES LEVEL 170 MG/DL (<150)
[2020-01-18 17:31] LABS: HEMOGLOBIN A1c 7.2 %
== END ==
LOC: M WUC 11:24
PROVIDERS: ATTEND Physician Assistant
DX: E11.40 Type 2 diabetes mellitus with diabetic neuropathy, unspecified (principal)

== ENCOUNTER → 2020-09-05 | Outpatient (CLI) | payer MEDICARE ==
[~2020-09-05] MED LIST changes: -ASPI81TA85 PO; +ASPI81TA86 PO
[2020-09-05 17:20] LABS: BASO % 0.4 % (0.0-1.0); EOS # 0.1 10^3/uL (0.0-0.5); EOS % 1.7 % (0.0-3.0); HEMATOCRIT 45.4 % (42.0-52.0); HEMOGLOBIN 14.8 g/dl (13.5-17.5); LYMPH # 1.4 10^3/uL (1.5-5.0); LYMPH % 20.5 % (24.0-44.0); MEAN CORPUSCULAR HEMOGLOBIN 28.4 pg (27.0-33.0); MEAN CORPUSCULAR HGB CONC 32.6 g/dl (32.0-36.5); MONO # 0.6 10^3/uL (0.0-0.8); NEUTROPHILS # 4.7 10^3/uL (1.5-8.5); NEUTROPHILS % 68.1 % (36.0-66.0); PLATELET COUNT, AUTOMATED 170 10^3/uL (150-450); RED BLOOD COUNT 5.22 10^6/uL (4.30-6.10); WHITE BLOOD COUNT 6.9 10^3/uL (4.0-10.0)
[2020-09-05 17:54] LABS: MALB URINE SIEMENS 9.4 MG/L; MAU/CREAT RATIO 5.1 MCG/MG (0.0-30.0)
[2020-09-05 18:26] LABS: ALT/SGPT 36 U/L (12-78); BILIRUBIN,TOTAL 0.6 MG/DL (0.2-1.0); BLOOD UREA NITROGEN 27 MG/DL (7-18); CALCIUM LEVEL 9.4 MG/DL (8.8-10.2); CARBON DIOXIDE LEVEL 30 MEQ/L (21-32); CHLORIDE LEVEL 102 MEQ/L (98-107); CHOLESTEROL LEVEL 140 MG/DL (<200); CHOLESTEROL RISK RATIO 3.888 (<5); CREATININE FOR GFR 1.18 MG/DL (0.70-1.30); GLOMERULAR FILTRATION RATE > 60.0 (>49); GLUCOSE, FASTING 139 MG/DL (70-100); HDL CHOLESTEROL 36 MG/DL (>40); LDL CHOLESTEROL 67 MG/DL (<100); NON-HDL-C 104 MG/DL; POTASSIUM SERUM 4.3 MEQ/L (3.5-5.1); SODIUM LEVEL 137 MEQ/L (136-145); TOTAL PROTEIN 7.7 GM/DL (6.4-8.2); TRIGLYCERIDES LEVEL 187 MG/DL (<150)
[2020-09-05 22:15] LABS: HEMOGLOBIN A1c 6.8 %
== END ==
LOC: M WUC 10:58
PROVIDERS: ATTEND Physician Assistant
DX: E11.40 Type 2 diabetes mellitus with diabetic neuropathy, unspecified (principal); I73.9 Peripheral vascular disease, unspecified

== ENCOUNTER → 2021-02-07 | Outpatient (CLI) | payer MEDICARE ==
[~2021-02-07] MED LIST changes: +ASPI-569 PO; -ASPI81TAEC PO; -LISI-542 PO; +LISI-898 PO
--- NOTE | 2021-02-07 14:26 | REP ---
INDICATION: CLAUDICATION COMPARISON: 12/15/2019. TECHNIQUE: Real time onofre scale and Duplex Doppler evaluation of the bilateral lower extremity arterial vasculature using linear high frequency transducer. FINDINGS: Onofre scale and duplex doppler images demonstrate mild scattered plaque bilaterally. There are diffuse biphasic and triphasic waveforms bilaterally. There is no evidence of focal stenosis. There is no arterial occlusion. Peak systolic velocities (cm/sec) Common femoral artery: Right 159; Left 127 Profunda femoris: Right 76; Left 105 SFA (proximal): Right 92; Left 85 SFA (mid): Right 109; Left 98 SFA (distal): Right 127; Left 75 Popliteal artery: Right 63; Left 60 RYAN (prox.): Right 42; Left 57 Tibioperoneal trunk: Right 61; Left 95 KERSEY DEPARTMENT SUPERVISOR (prox.): Right 69; Left 124 KERSEY DEPARTMENT SUPERVISOR (distal): Right 79; Left 68 RYAN (distal): Right 82; Left 61 IMPRESSION: Mild scattered diffuse plaquing. No focal stenosis or evidence of arterial occlusion. <Electronically signed by Mark Onofre > 02/07/21 [id number]
== END ==
LOC: M RAD 13:01
PROVIDERS: ATTEND Physician Assistant
DX: I70.213 Atherosclerosis of native arteries of extremities with intermittent claudication, bilateral legs (principal)

== ENCOUNTER → 2021-03-07 | Outpatient (CLI) | payer MEDICARE ==
[2021-03-07 16:38] LABS: ALBUMIN 4.1 GM/DL (3.2-5.2); ALT/SGPT 40 U/L (12-78); BILIRUBIN,TOTAL 0.5 MG/DL (0.2-1.0); BLOOD UREA NITROGEN 21 MG/DL (7-18); CALCIUM LEVEL 8.9 MG/DL (8.8-10.2); CARBON DIOXIDE LEVEL 28 MEQ/L (21-32); CHLORIDE LEVEL 105 MEQ/L (98-107); CHOLESTEROL LEVEL 140 MG/DL (<200); CHOLESTEROL RISK RATIO 3.684 (<5); GLOMERULAR FILTRATION RATE > 60.0 (>49); GLUCOSE, FASTING 159 MG/DL (70-100); HDL CHOLESTEROL 38 MG/DL (>40); LDL CHOLESTEROL 54 MG/DL (<100); NON-HDL-C 102 MG/DL; SODIUM LEVEL 139 MEQ/L (136-145); TOTAL PROTEIN 7.4 GM/DL (6.4-8.2); TRIGLYCERIDES LEVEL 238 MG/DL (<150)
[2021-03-07 18:05] LABS: HEMOGLOBIN A1c 6.9 %
== END ==
LOC: M WUC 10:20
PROVIDERS: ATTEND Physician Assistant Medical
DX: E11.40 Type 2 diabetes mellitus with diabetic neuropathy, unspecified (principal)

== ENCOUNTER → 2021-09-14 | Outpatient (CLI) | payer MEDICARE ==
[2021-09-14 16:42] LABS: ALBUMIN 4.2 GM/DL (3.2-5.2); ALT/SGPT 37 U/L (12-78); BILIRUBIN,TOTAL 0.6 MG/DL (0.2-1.0); BLOOD UREA NITROGEN 21 MG/DL (7-18); CALCIUM LEVEL 9.2 MG/DL (8.8-10.2); CARBON DIOXIDE LEVEL 32 MEQ/L (21-32); CHLORIDE LEVEL 104 MEQ/L (98-107); CHOLESTEROL LEVEL 154 MG/DL (<200); CHOLESTEROL RISK RATIO 3.756 (<5); CREATININE FOR GFR 1.21 MG/DL (0.70-1.30); GLOMERULAR FILTRATION RATE > 60.0 (>49); GLUCOSE, FASTING 99 MG/DL (70-100); HDL CHOLESTEROL 41 MG/DL (>40); LDL CHOLESTEROL 79 MG/DL (<100); NON-HDL-C 113 MG/DL; POTASSIUM SERUM 4.3 MEQ/L (3.5-5.1); SODIUM LEVEL 140 MEQ/L (136-145); TOTAL PROTEIN 7.9 GM/DL (6.4-8.2); TRIGLYCERIDES LEVEL 171 MG/DL (<150)
[2021-09-14 16:48] LABS: MALB URINE SIEMENS 10.4 MG/L; MAU/CREAT RATIO 6.3 MCG/MG (0.0-30.0)
[2021-09-14 17:18] LABS: HEMOGLOBIN A1c 6.9 %
== END ==
LOC: M WUC 11:04
PROVIDERS: ATTEND Family Medicine
DX: E11.40 Type 2 diabetes mellitus with diabetic neuropathy, unspecified (principal)

== ENCOUNTER → 2022-04-18 | Outpatient (CLI) | payer MEDICARE ==
[~2022-04-18] MED LIST changes: -LISI-898 PO; +LISI5TAB11 PO
[2022-04-18 13:20] LABS: CALCIUM LEVEL 9.3 MG/DL (8.8-10.2); CREATININE FOR GFR 1.34 MG/DL (0.70-1.30); GLOMERULAR FILTRATION RATE 56.6 (>49); POTASSIUM SERUM 3.8 MEQ/L (3.5-5.1)
[2022-04-18 13:30] LABS: HEMOGLOBIN A1c 6.9 %
== END ==
LOC: M WUC 09:59
PROVIDERS: ATTEND Nurse Practitioner Family
DX: E11.40 Type 2 diabetes mellitus with diabetic neuropathy, unspecified (principal)

== ENCOUNTER → 2022-10-09 | Outpatient (CLI) | payer MEDICARE ==
[~2022-10-09] MED LIST changes: -DOXY-350 PO; +DOXY-444 PO
[2022-10-09 14:46] LABS: HEMOGLOBIN A1c 7.3 % (4.0-6.0)
[2022-10-09 14:59] LABS: ALBUMIN 3.9 G/DL (3.2-5.2); BILIRUBIN,TOTAL 0.9 MG/DL (0.3-1.2); CALCIUM LEVEL 9.2 MG/DL (8.3-10.6); CHOLESTEROL RISK RATIO 3.95 (<5); CREATININE FOR GFR 1.31 MG/DL (0.70-1.30); GLOMERULAR FILTRATION RATE 57.9 (>49); HDL CHOLESTEROL 38.4 MG/DL (>40); LDL CHOLESTEROL 82.4 MG/DL (<100); TOTAL PROTEIN 7.2 G/DL (5.7-8.2)
[2022-10-09 15:08] LABS: CREATININE, URINE 186.1 MG/DL; MAU/CREAT RATIO 20.9 MCG/MG (0.0-30.0)
== END ==
LOC: M WUC 10:36
PROVIDERS: ATTEND Nurse Practitioner Family
DX: E11.40 Type 2 diabetes mellitus with diabetic neuropathy, unspecified (principal); I10 Essential (primary) hypertension; E78.2 Mixed hyperlipidemia

== ENCOUNTER → 2023-04-07 | Outpatient (CLI) | payer MEDICARE ==
[2023-04-07 14:10] LABS: HEMOGLOBIN A1c 7.7 % (4.0-6.0)
[2023-04-07 14:12] LABS: CALCIUM LEVEL 8.2 MG/DL (8.3-10.6); CREATININE FOR GFR 1.31 MG/DL (0.70-1.30); GLOMERULAR FILTRATION RATE 57.9 (>49); POTASSIUM SERUM 4.2 MMOL/L (3.5-5.1)
== END ==
LOC: M WUC 10:47
PROVIDERS: ATTEND Nurse Practitioner Family
DX: E11.40 Type 2 diabetes mellitus with diabetic neuropathy, unspecified (principal)

== ENCOUNTER → 2023-10-06 | Outpatient (CLI) | payer MEDICARE ==
[2023-10-06 18:13] LABS: HEMOGLOBIN A1c 7.3 % (4.0-6.0)
[2023-10-06 18:28] LABS: ALBUMIN 4.2 G/DL (3.2-5.2); ALKALINE PHOSPHATASE 78 U/L (46-116); ALT/SGPT 81 U/L (7.0-40); AST/SGOT 43 U/L (<34); BILIRUBIN,TOTAL 0.8 MG/DL (0.3-1.2); BLOOD UREA NITROGEN 23 MG/DL (9-23); CARBON DIOXIDE LEVEL 31 MMOL/L (20-31); CHLORIDE LEVEL 104 MMOL/L (98-107); CHOLESTEROL LEVEL 146 MG/DL (<200); CHOLESTEROL RISK RATIO 4.05 (<5); CREATININE FOR GFR 1.14 MG/DL (0.70-1.30); GLOMERULAR FILTRATION RATE > 60.0 (>49); GLUCOSE, FASTING 104 MG/DL (74-106); LDL CHOLESTEROL 70.2 MG/DL (<100); SODIUM LEVEL 141 MMOL/L (136-145); TOTAL PROTEIN 7.5 G/DL (5.7-8.2); TRIGLYCERIDES LEVEL 199 MG/DL (<150)
== END ==
LOC: M WUC 10:29
PROVIDERS: ATTEND Nurse Practitioner Family
DX: E11.40 Type 2 diabetes mellitus with diabetic neuropathy, unspecified (principal); I10 Essential (primary) hypertension; E78.2 Mixed hyperlipidemia

== ENCOUNTER → 2023-12-04 | Outpatient (CLI) | payer MEDICARE ==
[2023-12-04 18:28] LABS: BASO # 0.1 10^3/uL (0.0-0.2); BASO % 0.7 % (0.0-1.0); EOS # 0.1 10^3/uL (0.0-0.5); EOS % 1.8 % (0.0-3.0); HEMATOCRIT 46.4 % (42.0-52.0); HEMOGLOBIN 15.5 g/dl (13.5-17.5); LYMPH # 1.7 10^3/uL (1.5-5.0); LYMPH % 25.4 % (24.0-44.0); MEAN CORPUSCULAR HEMOGLOBIN 29.1 pg (27.0-33.0); MEAN CORPUSCULAR HGB CONC 33.4 g/dl (32.0-36.5); MEAN CORPUSCULAR VOLUME 87.1 fl (80.0-96.0); MONO # 0.5 10^3/uL (0.0-0.8); MONO % 7.8 % (2.0-8.0); NEUTROPHILS # 4.4 10^3/uL (1.5-8.5); PLATELET COUNT, AUTOMATED 173 10^3/uL (150-450); RED BLOOD COUNT 5.33 10^6/uL (4.30-6.10); WHITE BLOOD COUNT 6.8 10^3/uL (4.0-10.0)
[2023-12-04 18:48] LABS: BLOOD UREA NITROGEN 24 MG/DL (9-23); CALCIUM LEVEL 8.8 MG/DL (8.3-10.6); CARBON DIOXIDE LEVEL 33 MMOL/L (20-31); CHLORIDE LEVEL 104 MMOL/L (98-107); CREATININE FOR GFR 1.23 MG/DL (0.70-1.30); GLOMERULAR FILTRATION RATE > 60.0 (>49); GLUCOSE, FASTING 109 MG/DL (74-106); POTASSIUM SERUM 4.1 MMOL/L (3.5-5.1); SODIUM LEVEL 137 MMOL/L (136-145)
== END ==
LOC: M WUC 10:56
PROVIDERS: ATTEND Nurse Practitioner Family
DX: Z01.818 Encounter for other preprocedural examination (principal); I10 Essential (primary) hypertension

== ENCOUNTER → 2024-04-15 | Outpatient (REF) | payer MEDICARE ==
[~2024-04-15] MED LIST changes: +DOXY-440 PO; -DOXY-444 PO
[2024-04-15 11:49] LABS: HEMOGLOBIN A1c 8.4 % (4.0-6.0)
[2024-04-15 11:58] LABS: BILIRUBIN,TOTAL 0.6 MG/DL (0.3-1.2); CALCIUM LEVEL 8.6 MG/DL (8.3-10.6); POTASSIUM SERUM 4.1 MMOL/L (3.5-5.1)
[2024-04-16 12:36] LABS: CREATININE FOR GFR 1.32 MG/DL (0.70-1.30); GLOMERULAR FILTRATION RATE 57.3 (>49)
== END ==
LOC: M LABWUC 10:29
PROVIDERS: ATTEND Nurse Practitioner Family
DX: E11.40 Type 2 diabetes mellitus with diabetic neuropathy, unspecified (principal)

== ENCOUNTER → 2024-10-15 | Outpatient (CLI) | payer MEDICARE ==
[~2024-10-15] MED LIST changes: +GABA-1635 PO; -GABA800T4 PO
[2024-10-15 18:01] LABS: BASO % 0.4 % (0.0-1.0); EOS # 0.1 10^3/uL (0.0-0.5); EOS % 1.4 % (0.0-3.0); HEMATOCRIT 46.5 % (42.0-52.0); HEMOGLOBIN 15.2 g/dl (13.5-17.5); LYMPH # 1.7 10^3/uL (1.5-5.0); LYMPH % 22.4 % (24.0-44.0); MEAN CORPUSCULAR HEMOGLOBIN 28.4 pg (27.0-33.0); MEAN CORPUSCULAR HGB CONC 32.7 g/dl (32.0-36.5); MEAN CORPUSCULAR VOLUME 86.9 fl (80.0-96.0); MONO # 0.6 10^3/uL (0.0-0.8); MONO % 8.6 % (2.0-8.0); NEUTROPHILS # 4.9 10^3/uL (1.5-8.5); NEUTROPHILS % 66.9 % (36.0-66.0); PLATELET COUNT, AUTOMATED 157 10^3/uL (150-450); RED BLOOD COUNT 5.35 10^6/uL (4.30-6.10); WHITE BLOOD COUNT 7.4 10^3/uL (4.0-10.0)
[2024-10-15 18:18] LABS: CREATININE, URINE 179.4 MG/DL; MAU/CREAT RATIO 47.3 MCG/MG (0.0-30.0)
[2024-10-15 18:19] LABS: BILIRUBIN,TOTAL 0.8 MG/DL (0.3-1.2); CALCIUM LEVEL 9.6 MG/DL (8.3-10.6); CHOLESTEROL RISK RATIO 3.37 (<5); CREATININE FOR GFR 1.35 MG/DL (0.70-1.30); GLOMERULAR FILTRATION RATE 55.6 (>42); HDL CHOLESTEROL 35.9 MG/DL (>40); LDL CHOLESTEROL 56.5 MG/DL (<100); NON-HDL-C 85.1 MG/DL; POTASSIUM SERUM 4.4 MMOL/L (3.5-5.1); TOTAL PROTEIN 7.6 G/DL (5.7-8.2)
[2024-10-15 19:27] LABS: HEMOGLOBIN A1c 8.2 % (4.0-6.0)
== END ==
LOC: M WUC 13:03
PROVIDERS: ATTEND Nurse Practitioner Family
DX: E11.40 Type 2 diabetes mellitus with diabetic neuropathy, unspecified (principal); I10 Essential (primary) hypertension; E78.2 Mixed hyperlipidemia

== ENCOUNTER → 2025-05-10 | Outpatient (REF) | payer MEDICARE ==
[~2025-05-10] MED LIST changes: -ALPH600C PO; +ALPH600C2 PO
[2025-05-10 14:37] LABS: CALCIUM LEVEL 8.8 MG/DL (8.3-10.6); CARBON DIOXIDE LEVEL 30.0 MMOL/L (20-31); CHLORIDE LEVEL 107.0 MMOL/L (98-107); CREATININE FOR GFR 1.27 MG/DL (0.70-1.30); GLOMERULAR FILTRATION RATE 60.8 (>42); POTASSIUM SERUM 4.1 MMOL/L (3.5-5.1); SODIUM LEVEL 143.0 MMOL/L (136-145)
[2025-05-10 15:23] LABS: ESTIMATED AVERAGE GLUCOSE 177.0 MG/DL (60-110)
== END ==
LOC: M LABWUC 13:42 → M LAB REF 13:42
PROVIDERS: ATTEND Nurse Practitioner Family
DX: E11.40 Type 2 diabetes mellitus with diabetic neuropathy, unspecified (principal)